=== PATIENT | male | born 1935 | race Caucasian/White ===

== ENCOUNTER 2016-07-22 16:25 | Inpatient (IN) | payer MEDICARE ==
[2016-07-22] MEDS ORDERED: DILTIAZEM HCL 5 MG/ML VIAL IV ONE ×2 (16:29→16:34)
[2016-07-22] MEDS ORDERED: NORMAL SALINE 1,000 ML IV ONE (16:31)
[2016-07-22 16:55] LABS: Hemoglobin 16.6 gm/dL (13.5-18.0); Mean Cell Volume 92.1 fl (78-100); Mean Corpuscular Hgb Conc 32.5 g/dl (32-36); Mean Platelet Volume 11.8 fl (6.0-9.5); Neutrophil # 18.6 K/mm3 (1.3-6.0); Neutrophil % 92.9 % (42-75.0); Platelet Count 360 K/mm3 (150-450); Red Blood Count 5.54 M/mm3 (4.7-6.0); Red Cell Distribution Width 13.8 % (11.5-14.0)
[2016-07-22 17:13] LABS: Albumin * 3.3 gm/dl (3.4-5.0); Anion Gap 19.9 mmol/L (6.8-13.8); BUN/Creatinine Ratio 25.3 (9.0-21.6); Bilirubin, Total 1.2 mg/dL (0.0-1.1); Ca. Corrected For Albumin 9.4 mg/dL (8.4-10.2); Calcium * 9.2 mg/dL (7.9-10.9); Carbon Dioxide 23.7 mmol/L (24-32.6); Potassium 4.6 mmol/L (3.4-4.6); Total Protein 8.3 gm/dL (6.2-8.2)
[2016-07-22 17:18] LABS: Troponin I 0.049 ng/ml (0.00-0.10)
[2016-07-22 17:47] LABS: Urine Bilirubin Negative (NEGATIVE); Urine Blood 250 /ul (NEGATIVE); Urine Ketone Negative (NEGATIVE); Urine Nitrite Negative (NEGATIVE); Urine Protein 15 mg/dL (NEGATIVE); Urine Specific Gravity >=1.030 SP.GR. (1.005-1.030); Urine Urobilinogen Normal (NORMAL); Urine pH 5.5 pH (5.0-7.0)
[2016-07-22 17:56] LABS: Urine Appearance Clear; Urine Bacteria TRACE; Urine Color Yellow; Urine WBC None Seen /hpf (0-5)
[2016-07-22] MEDS: NORMAL SALINE 1,000 ML IV SCH ×2 (18:15→19:27)
--- NOTE | 2016-07-22 18:58 | ERNOTE ---
Medical Problem HPI - Narrative Date of Service: 07/22/16 - General Chief Complaint: General Assessment Time Seen by Provider: 07/22/16 16:26 Source: family, EMS Exam Limitations: dementia - Immun/Allergies/Home Medications Immunizations: IMMUNIZATION HX Immunizations Up to Date Yes History of Influenza Vaccine No Allergies/Adverse Reactions: Allergies No Known Allergies Allergy (Unverified 07/22/16 16:53) Home Medications: HOME MEDICATIONS Acetaminophen [Tylenol] 650 mg PO Q6H PRN 07/22/16 [Last Taken Unknown] Aspirin [Aspirin EC] 81 mg PO DAILY 07/22/16 [Last Taken Unknown] Benazepril HCl 10 mg PO DAILY 07/22/16 [Last Taken Unknown] Cyanocobalamin [Vitamin B-12] 1,000 mcg PO DAILY 07/22/16 [Last Taken Unknown] Magnesium Hydroxide [Milk Of Magnesia] 30 ml PO DAILY PRN 07/22/16 [Last Taken Unknown] Metoprolol Succinate [Toprol Xl] 1.5 tab PO BID 07/22/16 [Last Taken Unknown] Multivit-Min/FA/Lycopene/Lut [Sentry Senior Multivitamin Tab] 1 each PO DAILY [Last Taken Unknown] OLANZapine [Zyprexa] 5 mg PO BID 07/22/16 [Last Taken Unknown] Fords-3 Fatty Acids [Fish Oil] 1,000 mg PO DAILY 07/22/16 [Last Taken Unknown] Pravastatin Sodium [Pravachol] 80 mg PO HS 07/22/16 [Last Taken Unknown] QUEtiapine FUMARATE [Seroquel] 25 mg PO HS 07/22/16 [Last Taken Unknown] Risperidone [Risperdal] 1 mg PO BID 07/22/16 [Last Taken Unknown] Risperidone [Risperdal] 2 mg PO HS 07/22/16 [Last Taken Unknown] - History of Present History Narrative: Patient brought in by EMS for mental status changes. Family report for the last 3 hours he has been jumpy and not acting himself. No Hx is available from him. EMS noted high HR and also gave him narcan. Temp here 99.4F. Family relates last week or so not himself but really not acting himself last 3 hours. no other Hx avaialble. Timing: other - unclear Modifying Factors - (Improves): Present: other - unknown Modifying Factors - (Worsens): Present: other - unknown Review of Systems - Narrative Narrative: unable to obtain ROS d/t dementia and medical condition - Review of Systems All Other Systems: All systems neg except as marked - Patient's Past Medical History Patient History - Medical: Alzheimer's Disease, Dementia Patient History - Cancer: No Hx of Cancer Patient History - Surgical Procedures: Appendectomy, Cholecystectomy, Coronary Bypass Surgery, Other - Social History Living Situations: care home Alcohol Use: none Drug Use: none Physical Exam - Physical Exam General Appearance: Present: other - breathing on his own, jerking at times, no seizure activity. Does not answer questions, Clinically dehydrated. Eye Exam: Normal inspection: bilateral, PERRL: bilateral - 2mm bilaterally Ears, Nose, Throat: Present: dry mucous membranes Neck: Present: other - trachea midline Respiratory: Present: other - tubular BS left base Cardiovascular/Chest: Present: tachycardia, irregularly irregular Peripheral Pulses: N=norm/S=strong/W=weak/B=bound/A=absent: Radial (R): Normal, Radial (L): Normal, Femoral (R): Normal, Femoral (L): Normal Gastrointestinal/Abdominal: Present: nontender, nondistended, soft, no organomegaly Back Exam: Present: other - does not seem to react to CVA percussion bilaterally Extremity Exam: Present: other - scattered abrasions, no cellulitis Neurological Exam: Present: other - does not respond to commands. No clear focal unilateral motor deficits. Skin Exam: Present: other - no clear cellulitis ED Progress - Results and Orders Patient's Lab Results:: I have reviewed the patient's lab results. - Vital Signs Patient's Vital Signs:: I have reviewed the patient's vital signs. Vital Signs: Vital Signs 07/22/16 07/22/16 07/22/16 16:28 16:37 16:46 Temperature 37.0 C Pulse Rate 134 H 134 H 112 H Respiratory 18 25 H Rate Blood Pressure 94/48 94/48 138/103 O2 Sat by Pulse 97 97 Oximetry 07/22/16 07/22/16 07/22/16 16:58 17:26 17:40 Temperature Pulse Rate 107 H 133 H 147 H Respiratory 22 H 19 26 H Rate Blood Pressure 99/47 139/59 106/72 O2 Sat by Pulse 95 95 97 Oximetry 07/22/16 07/22/16 17:56 18:11 Temperature Pulse Rate 147 H 144 H Respiratory 25 H 25 H Rate Blood Pressure 126/42 98/60 O2 Sat by Pulse 94 96 Oximetry - EKG EKG: atrial fibrillation EKG read: Interp. by me EKG Comments: Atrial Fib with RVR. ST depression, likely rate related. EKG # 2. A fib RVR, improved rate. Still with mild ST depressions, likely still rate relates. No STEMI noted. - X-Ray X-Ray #1 X-Ray: chest Interpretation: Reviewed by me X-ray Comments: NAPP - CT/Ultrasound CT/Ultrasound Narrative: Head ct report reviewed. - Progress/Reassessment Chief Complaint: General Assessment Progress:: Improved Progress Note-Subjective: 07/22/16 18:56 HR improved with cardizem. Given Sepsis bolus and ABx. HR increased. Kristen Duque who will admit to ICU, recommends cardizem drip which has been ordered. patient transferred to ICU for further evaluation and management. Departure - Departure Clinical Impression: Mental status change, Acute kidney injury, Atrial fibrillation with RVR Disposition: [facility] Condition: Poor
[2016-07-22] MEDS ORDERED: ACETAMINOPHEN 325 MG TABLET PO PRN (19:09)
[2016-07-22] MEDS: DILTIAZEM HCL 125 MG in DEXTROSE 5 % IN WATER 100 ML IV PRN ×2 (19:21)
[2016-07-22] MEDS ORDERED: NORMAL SALINE 1,000 ML IV PRN (20:22)
--- NOTE | 2016-07-22 21:12 | HP ---
<Elizabeth Larry - Last Filed: 07/23/16 03:05> Chief Complaint - Chief Complaint Date of Service: 07/22/16 Time of Service: 21:09 Chief Complaint: 'unresponsive,'. Source of HPI- Pt; unreliable due to obtundation, Pt's family members, ER provider report. History of Present Illness: Mr Kirkland is a 81-yr-old WM who is normally seen by the [facility] in [place]. His PMH involves: A-fib, Alzheimer's, Dementia, HTN, HLD, Macular degenaration. History is mostly obtained from pt's spouse and daughter as pt is in an obtunded state of consciousness. Apparently, pt had been admitted at the [facility] on 07/07/16 due to progressive worsening confusion. CT of the head obtained on that hospital visit/admission did not have any acute findings. His medications were adjusted too while he was at the [facility] to help control his impulsive behavior. [place] [facility] [place] [facility] [place]. Nursing staff at the facility were concerned about his mental status changes and so he was brought to the [facility] ER by the EMS. Family state that pt was noted to have apneic breathing that lasted approximately 20 seconds and that staff were unable to verbally arouse him. During evaluation at the ED, the CXR obtained was unremarkable. The head CT did not indicate any acute findings. No infection in UA either. However, his laboratory studies showed an elevated WBC with a left shift. He was also tachycardic and tachypneic, and his Lactic acid was elevated at 3.1, which prompted an inpatient admission due to clinical signs of Sepsis. - Patient's Past Medical History Patient History - Medical: Alzheimer's Disease, Dementia, Other - Macular degeneration, Glaucoma, Patient History - Cardiac/Respiratory: Atrial Fibrillation, Hypertension, Hyperlipidemia Patient History - Cancer: No Hx of Cancer Patient History - Surgical Procedures: Appendectomy, Cholecystectomy, Coronary Bypass Surgery, Other - Prostatectomy, Tonsilectomy. - Family History Father Family History - Medical: Family History - Cardiac/Respiratory: Myocardial Infarction Mother Family History - Medical: Family History - Cardiac/Respiratory: Coronary Heart Disease - Social History Living Situations: fdc Smoking Status: Former smoker Have you smoked in the past 12 months: No Do you dip or chew tobacco: No Alcohol Use: none Drug Use: none - Immunizations Immunizations Up to Date: Yes Hx Pneumococcal Vaccination: Yes History of Influenza Vaccine: Yes Review Of Systems (GEN) - Review of Systems Additional Comments: ROS unobtainable due to pt's AMS. Allergies/Adverse Reactions: Allergies Allergy/AdvReac Type Severity Reaction Status Date / Time No Known Allergies Allergy Unverified 07/22/16 16:53 Home Medications: HOME MEDICATIONS Acetaminophen [Tylenol] 650 mg PO Q6H PRN 07/22/16 [Last Taken 07/21/16 09:14] Aspirin [Aspirin EC] 81 mg PO DAILY 07/22/16 [Last Taken 07/21/16 08:00] Benazepril HCl 10 mg PO DAILY 07/22/16 [Last Taken 07/21/16 08:00] Cyanocobalamin [Vitamin B-12] 1,000 mcg PO DAILY 07/22/16 [Last Taken 07/21/16 08:00] Lorazepam [Ativan] 1 mg PO QID PRN 07/22/16 [Last Taken 07/15/16 23:18] Magnesium Hydroxide [Milk Of Magnesia] 30 ml PO DAILY PRN 07/22/16 [Last Taken 07/21/16 09:15] Metoprolol Succinate [Toprol Xl] 1.5 tab PO BID 07/22/16 [Last Taken 07/21/16 20 :00] Multivit-Min/FA/Lycopene/Lut [Sentry Senior Multivitamin Tab] 1 each PO DAILY [Last Taken 07/21/16 08:00] OLANZapine [Zyprexa] 5 mg PO BID 07/22/16 [Last Taken 07/21/16 08:00] Noti-3 Fatty Acids [Fish Oil] 1,000 mg PO DAILY 07/22/16 [Last Taken 07/21/16 08:00] Pravastatin Sodium [Pravachol] 80 mg PO HS 07/22/16 [Last Taken 07/21/16 20:00] QUEtiapine FUMARATE [Seroquel] 25 mg HS 07/22/16 [Last Taken 07/21/16 20:00] Risperidone [Risperdal] 1 mg PO BID 07/22/16 [Last Taken 07/21/16 14:00] Risperidone [Risperdal] 2 mg PO HS 07/22/16 [Last Taken 07/21/16 20:00] Exam - Exam Vital Signs: Vital Signs - Last Taken Temp 37.9 C H 07/22/16 18:33 Pulse 141 H 07/22/16 19:21 Resp 24 H 07/22/16 18:33 BP 128/47 07/22/16 19:21 Pulse Ox 100 07/22/16 18:33 Constitutional: Present: No distress, Obtunded, Elderly Eye Exam: bilateral eye: normal inspection - Legally Blind Neck: Present: supple, normal inspection, trachea midline Back Exam: Present: normal inspection, no CVA tenderness Breasts: Present: Exam deferred Respiratory: Present: lungs clear, no accessory muscle use, No wheezing Cardiovascular/Chest: Present: tachycardia, irregularly irregular Abdomen: Present: Normal bowel sounds, soft, nontender, nondistended /Rectal: Present: Exam deferred, Other Extremity: Present: no pedal edema Skin Exam: Present: no cyanosis, cool/dry, other - Scattered bruising all over. Neurologic: Present: motor weakness, other - Obtunded, GCS=7 Appearance: Present: impaired insight, impaired recent memory, impaired remote memory Eye contact: Present: other - No spontanous eye opening. Thoughts: Present: no apparent hallucination Diagnostic Studies: Laboratory Results WBC 20.0 K/mm3 (4.0-10.5) H 07/22/16 16:50 RBC 5.54 M/mm3 (4.7-6.0) 07/22/16 16:50 Hgb 16.6 gm/dL (13.5-18.0) 07/22/16 16:50 Hct 51.0 % (42.0-52.0) 07/22/16 16:50 MCV 92.1 fl (78-100) 07/22/16 16:50 MCH 30.0 pg (27-31) 07/22/16 16:50 MCHC 32.5 g/dl (32-36) 07/22/16 16:50 RDW 13.8 % (11.5-14.0) 07/22/16 16:50 Plt Count 360 K/mm3 (150-450) 07/22/16 16:50 MPV 11.8 fl (6.0-9.5) H 07/22/16 16:50 Immature Gran % (Auto) 0.50 % (0.001-0.429) H 07/22/16 16:50 Immature Gran # (Auto) 0.10 K/mm3 (0.000-0.0310) H 07/22/16 16:50 Neutrophils % 92.9 % (42-75.0) H 07/22/16 16:50 Lymphocytes % 3.1 % (20-51) L 07/22/16 16:50 Monocytes % 3.2 % (0.0-9) 07/22/16 16:50 Eosinophils % 0.0 % (0.0-3.0) 07/22/16 16:50 Basophils % 0.3 % (0.0-1.0) 07/22/16 16:50 Nucleated RBC % 0.0 k/mm3 (0-1) 07/22/16 16:50 Neutrophils # 18.6 K/mm3 (1.3-6.0) H 07/22/16 16:50 Lymphocytes # 0.6 k/mm3 (1.5-3.5) L 07/22/16 16:50 Monocytes # 0.6 k/mm3 (0.0-1.0) 07/22/16 16:50 Eosinophils # 0.0 k/mm3 (0.0-0.7) 07/22/16 16:50 Absolute Basophils 0.1 k/mm3 (0.0-0.1) 07/22/16 16:50 pCO2 24.9 mmHg (35.0-48.0) L 07/22/16 16:29 pO2 72.5 mmHg (83.0-108.0) L 07/22/16 16:29 HCO3 18.5 mmol/L (21.0-28.0) L 07/22/16 16:29 Total CO2 19.3 mmol/L (19.0-24.0) 07/22/16 16:29 Base Excess -2.7 mmol/L (-2.0-3.0) L 07/22/16 16:29 ABG pH 7.49 (7.35-7.45) H 07/22/16 16:29 ABG O2 Sat (Measured) 95.9 % (94.0-98.0) 07/22/16 16:29 Sodium 152 mmol/L (132-142) H 07/22/16 16:50 Plasma Sodium 153 mmol/L (130-142) H 07/22/16 16:50 Potassium 4.6 mmol/L (3.4-4.6) 07/22/16 16:50 Chloride 113 mmol/L (97-106) H 07/22/16 16:50 Carbon Dioxide 23.7 mmol/L (24-32.6) L 07/22/16 16:50 Anion Gap 19.9 mmol/L (6.8-13.8) H 07/22/16 16:50 BUN 96 mg/dL (6-23) H 07/22/16 16:50 Creatinine 3.79 mg/dL (0.4-1.4) H 07/22/16 16:50 Est GFR (Non-Af Amer) 16 mL/min (60-130) L 07/22/16 16:50 BUN/Creatinine Ratio 25.3 (9.0-21.6) H 07/22/16 16:50 Random Glucose 174 mg/dL (70-110) H 07/22/16 16:50 Lactic Acid, Venous 3.1 mmol/L (0.4-2.0) H* 07/22/16 16:50 Calcium 9.2 mg/dL (7.9-10.9) 07/22/16 16:50 Calcium Adj for Albumin 9.4 mg/dL (8.4-10.2) 07/22/16 16:50 Total Bilirubin 1.2 mg/dL (0.0-1.1) H 07/22/16 16:50 AST 289 U/L (0-48) H 07/22/16 16:50 ALT 108 U/L (19-67) H 07/22/16 16:50 Alkaline Phosphatase 134 U/L (50-170) 07/22/16 16:50 Troponin I 0.049 ng/ml (0.00-0.10) 07/22/16 16:50 Total Protein 8.3 gm/dL (6.2-8.2) H 07/22/16 16:50 Albumin 3.3 gm/dl (3.4-5.0) L 07/22/16 16:50 Urine Color Yellow 07/22/16 17:41 Urine Appearance Clear 07/22/16 17:41 Urine pH 5.5 pH (5.0-7.0) 07/22/16 17:41 Ur Specific [place] >=1.030 SP.GR. (1.005-1.030) 07/22/16 17:41 Urine Protein 15 mg/dL (NEGATIVE) H 07/22/16 17:41 Urine Glucose (UA) Negative mg/dL (NEGATIVE) 07/22/16 17:41 Urine Ketones Negative mg/dL (NEGATIVE) 07/22/16 17:41 Urine Blood 250 /ul (NEGATIVE) H 07/22/16 17:41 Urine Nitrate Negative (NEGATIVE) 07/22/16 17:41 Urine Bilirubin Negative mg/dl (NEGATIVE) 07/22/16 17:41 Prot Sulfosalicylic Acd Negative mg/dL (0) 07/22/16 17:41 Urine Urobilinogen Normal EU/dl (NORMAL) 07/22/16 17:41 Ur Leukocyte Esterase Negative /ul (NEGATIVE) 07/22/16 17:41 Urine RBC 5-10 /hpf (0-5) H 07/22/16 17:41 Urine WBC None seen /hpf (0-5) 07/22/16 17:41 Ur Epithelial Cells 5-10 /hpf (0-5) H 07/22/16 17:41 Urine Bacteria Trace (NONE) 07/22/16 17:41 Urine Culture Comments Culture to follow 07/22/16 17:41 Assessment/Plan - Assessment/Plan (1) Sepsis Assessment: Evidence by AMS, Lactic acid elevation, Leukocytosis, tachypnea & Tachycardia. Source of infection; unknown. Will receive treatment according to sepsis protocol; Aggressive IVF hydration & Antibiotics. Blood cultures pending. Problem: Acute (2) Atrial fibrillation with RVR Assessment: Noted to be in Afib with RVR heart rate in the 170s. Started on Diltiazem Drip and placed on closed monitoring unit. Problem: Acute (3) Acute kidney injury Assessment: BUN/CR of 96/3.79. His baseline while at the [facility] was 20/1.1. Is likley pre- renal. Will hydrate with IVF. BMP in am. Problem: Acute (4) Altered mental status Assessment: CT was negative for Ischemic or hemorrhagic stroke. Can be due to infection, or also medication related. He is on 3 psychotropic medications ( Seroquel, Zyprexa and Risperdal.) Will hold off all medications until he is more awake/ alert. Problem: Acute (5) HTN (hypertension) Problem: Chronic QualifierTitle: Hypertension type: essential hypertension Qualified Code( s): I10 - Essential (primary) hypertension (6) Macular degeneration Problem: Chronic (7) Dementia Problem: Chronic QualifierTitle: Dementia type: Alzheimer's disease <Jose Dixon - Last Filed: 07/23/16 11:10> Immunizations: IMMUNIZATION HX Immunizations Up to Date Yes History of Influenza Vaccine Yes Hx Pneumococcal Vaccination Yes Exam - Exam Vital Signs: Vital Signs - Last Taken Temp 36.7 C 07/23/16 07:19 Pulse 76 07/23/16 11:03 Resp 28 H 07/23/16 11:03 BP 108/45 07/23/16 11:03 Pulse Ox 97 07/23/16 11:03 Diagnostic Studies: Abnormal Lab Results 07/22/16 07/23/16 07/23/16 Range/Units 19:15 05:37 05:37 WBC 12.3 H D (4.0-10.5) K/mm3 RDW 14.1 H (11.5-14.0) % MPV 11.2 H (6.0-9.5) fl Band Neuts % (Manual) 24 H (0-2.0) % Lymphocytes % (Manual) 1 L (20-51) % Immature Granulocytes 2 H (0-1) Neutrophils # (Manual) 8.6 H (1.3-6.0) K/mm3 Lymphocytes # (Manual) 0.1 L (1.5-3.5) k/mm3 Sodium 154 H (132-142) mmol/L Plasma Sodium 155 H (130-142) mmol/L Chloride 119 H (97-106) mmol/L Carbon Dioxide 20.4 L (24-32.6) mmol/L Anion Gap 18.9 H (6.8-13.8) mmol/L BUN 87 H (6-23) mg/dL Creatinine 2.92 H D (0.4-1.4) mg/dL Est GFR (Non-Af Amer) 22 L D (60-130) mL/min BUN/Creatinine Ratio 29.8 H (9.0-21.6) Random Glucose 172 H (70-110) mg/dL Lactic Acid, Venous 2.1 H (0.4-2.0) mmol/L AST 202 H (0-48) U/L ALT 80 H (19-67) U/L Albumin 2.5 L (3.4-5.0) gm/dl TSH 0.242 L (0.358-3.74) uIU/mL Laboratory Results WBC 12.3 K/mm3 (4.0-10.5) H D 07/23/16 05:37 RBC 4.77 M/mm3 (4.7-6.0) 07/23/16 05:37 Hgb 14.6 gm/dL (13.5-18.0) 07/23/16 05:37 Hct 43.6 % (42.0-52.0) 07/23/16 05:37 MCV 91.4 fl (78-100) 07/23/16 05:37 MCH 30.6 pg (27-31) 07/23/16 05:37 MCHC 33.5 g/dl (32-36) 07/23/16 05:37 RDW 14.1 % (11.5-14.0) H 07/23/16 05:37 Plt Count 274 K/mm3 (150-450) 07/23/16 05:37 MPV 11.2 fl (6.0-9.5) H 07/23/16 05:37 Immature Gran % (Auto) 0.50 % (0.001-0.429) H 07/22/16 16:50 Immature Gran # (Auto) 0.10 K/mm3 (0.000-0.0310) H 07/22/16 16:50 Neutrophils % 92.9 % (42-75.0) H 07/22/16 16:50 Neutrophils % (Manual) 70 % (42-75) 07/23/16 05:37 Band Neuts % (Manual) 24 % (0-2.0) H 07/23/16 05:37 Lymphocytes % 3.1 % (20-51) L 07/22/16 16:50 Lymphocytes % (Manual) 1 % (20-51) L 07/23/16 05:37 Monocytes % 3.2 % (0.0-9) 07/22/16 16:50 Monocytes % (Manual) 2 % (0-9) 07/23/16 05:37 Eosinophils % 0.0 % (0.0-3.0) 07/22/16 16:50 Basophils % 0.3 % (0.0-1.0) 07/22/16 16:50 Nucleated RBC % 0.0 k/mm3 (0-1) 07/22/16 16:50 Immature Granulocytes 2 (0-1) H 07/23/16 05:37 Neutrophils # 18.6 K/mm3 (1.3-6.0) H 07/22/16 16:50 Neutrophils # (Manual) 8.6 K/mm3 (1.3-6.0) H 07/23/16 05:37 Lymphocytes # 0.6 k/mm3 (1.5-3.5) L 07/22/16 16:50 Lymphocytes # (Manual) 0.1 k/mm3 (1.5-3.5) L 07/23/16 05:37 Monocytes # 0.6 k/mm3 (0.0-1.0) 07/22/16 16:50 Monocytes # (Manual) 0.2 k/mm3 (0.0-1.0) 07/23/16 05:37 Eosinophils # 0.0 k/mm3 (0.0-0.7) 07/22/16 16:50 Absolute Basophils 0.1 k/mm3 (0.0-0.1) 07/22/16 16:50 Atypic/Reactive Lymphs 1 % (0-2) 07/23/16 05:37 Toxic Granulation 2+ 07/23/16 05:37 Toxic Vacuolation 1+ 07/23/16 05:37 Dohle Bodies 1+ 07/23/16 05:37 Platelet Estimate Normal (NORMAL) 07/23/16 05:37 pCO2 24.9 mmHg (35.0-48.0) L 07/22/16 16:29 pO2 72.5 mmHg (83.0-108.0) L 07/22/16 16:29 HCO3 18.5 mmol/L (21.0-28.0) L 07/22/16 16:29 Total CO2 19.3 mmol/L (19.0-24.0) 07/22/16 16:29 Base Excess -2.7 mmol/L (-2.0-3.0) L 07/22/16 16:29 ABG pH 7.49 (7.35-7.45) H 07/22/16 16:29 ABG O2 Sat (Measured) 95.9 % (94.0-98.0) 07/22/16 16:29 Sodium 154 mmol/L (132-142) H 07/23/16 05:37 Plasma Sodium 155 mmol/L (130-142) H 07/23/16 05:37 Potassium 4.3 mmol/L (3.4-4.6) 07/23/16 05:37 Chloride 119 mmol/L (97-106) H 07/23/16 05:37 Carbon Dioxide 20.4 mmol/L (24-32.6) L 07/23/16 05:37 Anion Gap 18.9 mmol/L (6.8-13.8) H 07/23/16 05:37 BUN 87 mg/dL (6-23) H 07/23/16 05:37 Creatinine 2.92 mg/dL (0.4-1.4) H D 07/23/16 05:37 Est GFR (Non-Af Amer) 22 mL/min (60-130) L D 07/23/16 05:37 BUN/Creatinine Ratio 29.8 (9.0-21.6) H 07/23/16 05:37 Random Glucose 172 mg/dL (70-110) H 07/23/16 05:37 Lactic Acid, Venous 2.1 mmol/L (0.4-2.0) H 07/22/16 19:15 Calcium 8.1 mg/dL (7.9-10.9) 07/23/16 05:37 Calcium Adj for Albumin 9.0 mg/dL (8.4-10.2) 07/23/16 05:37 Total Bilirubin 0.8 mg/dL (0.0-1.1) 07/23/16 05:37 AST 202 U/L (0-48) H 07/23/16 05:37 ALT 80 U/L (19-67) H 07/23/16 05:37 Alkaline Phosphatase 104 U/L (50-170) 07/23/16 05:37 Troponin I 0.049 ng/ml (0.00-0.10) 07/22/16 16:50 Total Protein 6.6 gm/dL (6.2-8.2) 07/23/16 05:37 Albumin 2.5 gm/dl (3.4-5.0) L 07/23/16 05:37 TSH 0.242 uIU/mL (0.358-3.74) L 07/23/16 05:37 Free T4 1.26 ng/dL (0.76-1.46) 07/23/16 05:37 Urine Color Yellow 07/22/16 17:41 Urine Appearance Clear 07/22/16 17:41 Urine pH 5.5 pH (5.0-7.0) 07/22/16 17:41 Ur Specific [place] >=1.030 SP.GR. (1.005-1.030) 07/22/16 17:41 Urine Protein 15 mg/dL (NEGATIVE) H 07/22/16 17:41 Urine Glucose (UA) Negative mg/dL (NEGATIVE) 07/22/16 17:41 Urine Ketones Negative mg/dL (NEGATIVE) 07/22/16 17:41 Urine Blood 250 /ul (NEGATIVE) H 07/22/16 17:41 Urine Nitrate Negative (NEGATIVE) 07/22/16 17:41 Urine Bilirubin Negative mg/dl (NEGATIVE) 07/22/16 17:41 Prot Sulfosalicylic Acd Negative mg/dL (0) 07/22/16 17:41 Urine Urobilinogen Normal EU/dl (NORMAL) 07/22/16 17:41 Ur Leukocyte Esterase Negative /ul (NEGATIVE) 07/22/16 17:41 Urine RBC 5-10 /hpf (0-5) H 07/22/16 17:41 Urine WBC None seen /hpf (0-5) 07/22/16 17:41 Ur Epithelial Cells 5-10 /hpf (0-5) H 07/22/16 17:41 Urine Bacteria Trace (NONE) 07/22/16 17:41 Urine Culture Comments Culture to follow 07/22/16 17:41 Influenza Type A Ag Negative (NEGATIVE) 07/22/16 21:32 Influenza Type B Ag Negative (NEGATIVE) 07/22/16 21:32 Assessment/Plan - Narrative Narrative: According to his family, he has been more confused and disoriented for about a week, worse for several hours on the day of admission. He was taking at the same time Risperdal, Seroquel and Zyprexa. He has a history of Alzheimer's with behaviours, recently worsening. This time, he also has a cough, and a fib with RVR, now controlled with Diltiazem. He has a history of chronic atrial fibrillation. He is probably suffering with bronchits, cultures are pending. I directly supervised all of Elizabeth Larry's care for this patient.
[2016-07-22] MEDS: 0.5 NORMAL SALINE 1,000 ML IV PRN (21:41)
[2016-07-22] MEDS: METOPROLOL TARTRATE 25 MG TABLET PO SCH (21:48)
[2016-07-22] MEDS: ENOXAPARIN SODIUM 30 MG/0.3 ML SYRG SC SCH (21:49)
[2016-07-23] MEDS: DILTIAZEM HCL 125 MG in DEXTROSE 5 % IN WATER 100 ML IV PRN ×4 (03:17→11:59)
[2016-07-23] MEDS: 0.5 NORMAL SALINE 1,000 ML IV PRN (05:27)
[2016-07-23 05:45] LABS: Hematocrit 43.6 % (42.0-52.0); Hemoglobin 14.6 gm/dL (13.5-18.0); Mean Cell Volume 91.4 fl (78-100); Mean Corpuscular Hemoglobin 30.6 pg (27-31); Mean Corpuscular Hgb Conc 33.5 g/dl (32-36); Mean Platelet Volume 11.2 fl (6.0-9.5); Platelet Count 274 K/mm3 (150-450); Red Blood Count 4.77 M/mm3 (4.7-6.0); Red Cell Distribution Width 14.1 % (11.5-14.0); White Blood Count 12.3 K/mm3 (4.0-10.5)
[2016-07-23 05:58] LABS: Total Cells Counted 100
[2016-07-23 06:10] LABS: BUN/Creatinine Ratio 29.8 (9.0-21.6); Carbon Dioxide 20.4 mmol/L (24-32.6); Potassium 4.3 mmol/L (3.4-4.6)
[2016-07-23 06:11] LABS: Albumin * 2.5 gm/dl (3.4-5.0); Anion Gap 18.9 mmol/L (6.8-13.8); Bilirubin, Total 0.8 mg/dL (0.0-1.1); Calcium * 8.1 mg/dL (7.9-10.9); T4 Free * 1.26 ng/dL (0.76-1.46); TSH * 0.242 uIU/mL (0.358-3.74); Total Protein 6.6 gm/dL (6.2-8.2)
[2016-07-23 06:19] LABS: Atypical (Reactive) Lymph 1 % (0-2); Band 24 % (0-2.0); Immature Granulocyte 2 (0-1); Lymphocyte 1 % (20-51); Monocyte 2 % (0-9); Neutrophil 70 % (42-75); Neutrophil # 8.6 K/mm3 (1.3-6.0)
[2016-07-23 06:20] LABS: Dohle Bodies 1+; Platelet Estimate Normal (NORMAL); Toxic Granulation 2+
[2016-07-23] MEDS: AMIODARONE HCL 200 MG TABLET PO SCH ×2 (08:12→20:55)
[2016-07-23] MEDS: METOPROLOL TARTRATE 25 MG TABLET PO SCH ×2 (08:12→20:55)
[2016-07-23] MEDS: POTASSIUM CHLORIDE 10 MEQ in DEXTROSE 5 % IN WATER 1,000 ML IV SCH ×4 (08:13→16:48)
[2016-07-23] MEDS: MULTIVIT WITH IRON-MINERALS 1 TAB TABLET PO SCH (08:26)
[2016-07-23] MEDS: CYANOCOBALAMIN 1,000 MCG TABLET PO SCH (08:26)
[2016-07-23] MEDS ORDERED: ASPIRIN 81 MG TABLET.DR PO SCH (09:00)
--- NOTE | 2016-07-23 11:21 | PN ---
Subjective - Date and Time Seen Date: 07/23/16 Time: 06:00 Subjective Narrative: Mostly slept through the night. No difficult behaviors. Heart rate improved with diltiazem drip. Cultures pending. On antibiotics. Still in chronic a fib. 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 Objective - Review of Systems Generalized/Overall Review: Reports: No Symptoms Reported - poor historian due to mental state. - Vitals Vitals: Last Vital Signs Selected Entries 07/23/16 07:19 Temperature 36.7 C Temperature Temporal Artery Source Scan Pulse Rate 98 Respiratory 22 H Rate Blood Pressure 132/75 O2 Sat by Pulse 98 Oximetry Oxygen Delivery Room Air Method - Abnormal Lab Findings Abnormal Lab Findings: Abnormal Lab Results 07/22/16 07/23/16 07/23/16 Range/Units 19:15 05:37 05:37 WBC 12.3 H D (4.0-10.5) K/mm3 RDW 14.1 H (11.5-14.0) % MPV 11.2 H (6.0-9.5) fl Band Neuts % (Manual) 24 H (0-2.0) % Lymphocytes % (Manual) 1 L (20-51) % Immature Granulocytes 2 H (0-1) Neutrophils # (Manual) 8.6 H (1.3-6.0) K/mm3 Lymphocytes # (Manual) 0.1 L (1.5-3.5) k/mm3 Sodium 154 H (132-142) mmol/L Plasma Sodium 155 H (130-142) mmol/L Chloride 119 H (97-106) mmol/L Carbon Dioxide 20.4 L (24-32.6) mmol/L Anion Gap 18.9 H (6.8-13.8) mmol/L BUN 87 H (6-23) mg/dL Creatinine 2.92 H D (0.4-1.4) mg/dL Est GFR (Non-Af Amer) 22 L D (60-130) mL/min BUN/Creatinine Ratio 29.8 H (9.0-21.6) Random Glucose 172 H (70-110) mg/dL Lactic Acid, Venous 2.1 H (0.4-2.0) mmol/L AST 202 H (0-48) U/L ALT 80 H (19-67) U/L Albumin 2.5 L (3.4-5.0) gm/dl TSH 0.242 L (0.358-3.74) uIU/mL - Exam Constitutional: Present: Alert, Cooperative, Well developed, Well nourished, Mild distress ENT Exam: Present: normal ENT inspection Neck: Present: normal inspection Respiratory: Present: lungs clear, no respiratory distress Cardiovascular/Chest: Present: no murmur, irregularly irregular Abdomen: Present: Normal bowel sounds, soft, nontender, nondistended, no rebound tenderness, no hepatospenomegaly, no masses Extremity: Present: normal range of motion, non-tender, normal inspection, no pedal edema Skin Exam: Present: normal color, warm/dry, no cyanosis Neurologic: Present: alert. Absent: oriented x 3 Appearance: Present: appropriate appearance, neat Eye contact: Present: cooperative Cauti Physician Documentation - Urinary Catheter Management Urethral (Moralez) Date of Insertion: 07/22/16 Time of Insertion: 21:20 Assessment/Plan Plan Narrative: Avoid major tranquilizers if able. Switch diltizem IV to oral beta blcoker. IV antibiotics. Follow labs. Await cultures. Add amiodarone. - Problems/Diagnosis (1) Antipsychotic-induced akathisia Problem: Acute (2) Acute kidney injury Problem: Acute (3) Altered mental status Problem: Acute Qualifiers: Altered mental status type: disorientation Qualified Code(s): R41.0 - Disorientation, unspecified (4) Atrial fibrillation with RVR Problem: Acute (5) Sepsis Problem: Acute Qualifiers: Sepsis type: sepsis due to unspecified organism Qualified Code(s): A41.9 - Sepsis, unspecified organism (6) Dementia Problem: Chronic Qualifiers: Dementia type: Alzheimer's disease Alzheimer's disease onset: late-onset Dementia behavioral disturbance: with behavioral disturbance Qualified Code(s) : G30.1 - Alzheimer's disease with late onset; F02.81 - Dementia in other diseases classified elsewhere with behavioral disturbance (7) HTN (hypertension) Problem: Chronic Qualifiers: Hypertension type: essential hypertension Qualified Code(s): I10 - Essential (primary) hypertension (8) Macular degeneration Problem: Chronic
[2016-07-23] MEDS: ENOXAPARIN SODIUM 30 MG/0.3 ML SYRG SC SCH (21:01)
[2016-07-24] MEDS: POTASSIUM CHLORIDE 10 MEQ in DEXTROSE 5 % IN WATER 1,000 ML IV SCH ×2 (01:16)
[2016-07-24 05:40] LABS: Hematocrit 41.5 % (42.0-52.0); Hemoglobin 13.5 gm/dL (13.5-18.0); Mean Corpuscular Hemoglobin 29.9 pg (27-31); Mean Corpuscular Hgb Conc 32.5 g/dl (32-36); Mean Platelet Volume 11.5 fl (6.0-9.5); Platelet Count 224 K/mm3 (150-450); Red Blood Count 4.51 M/mm3 (4.7-6.0); Red Cell Distribution Width 13.8 % (11.5-14.0); White Blood Count 11.6 K/mm3 (4.0-10.5)
[2016-07-24 05:49] LABS: Anion Gap 12.5 mmol/L (6.8-13.8); BUN/Creatinine Ratio 28.4 (9.0-21.6); Calcium * 8.1 mg/dL (7.9-10.9); Carbon Dioxide 24.4 mmol/L (24-32.6); Estimated Creat Clear 24.9; Potassium 3.9 mmol/L (3.4-4.6)
[2016-07-24 05:55] LABS: Total Cells Counted 100
[2016-07-24 06:32] LABS: Atypical (Reactive) Lymph 1 % (0-2); Band 29 % (0-2.0); Eosinophil 6 % (0-3); Lymphocyte 4 % (20-51); Monocyte 1 % (0-9); Neutrophil 59 % (42-75); Neutrophil # 6.8 K/mm3 (1.3-6.0)
[2016-07-24 06:33] LABS: Dohle Bodies 2+; Platelet Estimate Normal (NORMAL)
[2016-07-24] MEDS ORDERED: POTASSIUM CHLORIDE 20 MEQ in DEXTROSE 5 % IN WATER 1,000 ML IV SCH ×2 (07:30)
[2016-07-24] MEDS: METOPROLOL TARTRATE 25 MG TABLET PO SCH ×2 (09:18→20:33)
[2016-07-24] MEDS: AMIODARONE HCL 200 MG TABLET PO SCH ×2 (09:18→20:32)
[2016-07-24] MEDS: MULTIVIT WITH IRON-MINERALS 1 TAB TABLET PO SCH (09:24)
[2016-07-24] MEDS: CYANOCOBALAMIN 1,000 MCG TABLET PO SCH (09:24)
[2016-07-24] MEDS ORDERED: DILTIAZEM HCL 125 MG in DEXTROSE 5 % IN WATER 100 ML IV PRN ×2 (11:52)
[2016-07-24] MEDS ORDERED: ACETAMINOPHEN 325 MG TABLET PO PRN (11:52)
[2016-07-24] MEDS: POTASSIUM CHLORIDE 20 MEQ in DEXTROSE 5 % IN WATER 1,000 ML IV SCH ×2 (16:26)
--- NOTE | 2016-07-24 16:41 | PN ---
Subjective - Date and Time Seen Date: 07/24/16 Time: 06:45 Subjective Narrative: Mostly slept through the night. No difficult behaviors. Heart rate improved with diltiazem drip. Cultures pending. Infection is bronchitis. On antibiotics. Still in chronic a fib. Rate controlled. 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 Objective - Review of Systems Generalized/Overall Review: Reports: Weakness - nurse reports..........patient unable, Malaise Respiratory: Reports: Cough Abdominal: Denies: Nausea, Vomiting, Diarrhea Neurological: Reports: Pre-existing Deficit Skin: Denies: No Symptoms Reported Misc: All systems neg except as marked - Vitals Vitals: Last Vital Signs Selected Entries 07/24/16 07/24/16 07/24/16 00:00 02:00 04:00 Temperature 37.3 C 37.2 C Temperature Temporal Artery Source Scan Pulse Rate 97 104 H 104 H Pulse Rhythm Irregular Respiratory 16 22 H 22 H Rate Respiratory Normal Depth Respiratory Normal Effort Respiratory Normal Pattern Blood Pressure 104/58 89/58 114/69 Blood Pressure Supine Supine Position O2 Sat by Pulse 97 97 Oximetry Oxygen Delivery Room Air Room Air Method - Exam Constitutional: Present: Well developed, Well nourished, Mild distress, Lethargic, Looks Older than stated age ENT Exam: Present: normal ENT inspection Neck: Present: normal inspection Respiratory: Present: rhonchi Cardiovascular/Chest: Present: regular rate, rhythm, no murmur Abdomen: Present: Normal bowel sounds, soft, nondistended, no hepatospenomegaly , no masses Extremity: Present: normal inspection, no pedal edema Skin Exam: Present: normal color, warm/dry, no cyanosis Neurologic: Absent: alert, oriented x 3 Appearance: Present: appropriate appearance Eye contact: Absent: cooperative, good eye contact, normal speech Thoughts: Absent: normal thought pattern Cauti Physician Documentation - Urinary Catheter Management Urethral (Moralez) Date of Insertion: 07/22/16 Time of Insertion: 21:20 Assessment/Plan Plan Narrative: We will continue off psychotropics for now. Continue amiodarone and monitor. Add doxycycline for atypical coverage. Transfer to med surg. Follow labs. - Problems/Diagnosis (1) Antipsychotic-induced akathisia Problem: Acute (2) Acute kidney injury Problem: Acute (3) Altered mental status Problem: Acute Qualifiers: Altered mental status type: disorientation Qualified Code(s): R41.0 - Disorientation, unspecified (4) Atrial fibrillation with RVR Problem: Acute (5) Sepsis Problem: Acute Qualifiers: Sepsis type: sepsis due to unspecified organism Qualified Code(s): A41.9 - Sepsis, unspecified organism (6) Dementia Problem: Chronic Qualifiers: Dementia type: Alzheimer's disease Alzheimer's disease onset: late-onset Dementia behavioral disturbance: with behavioral disturbance Qualified Code(s) : G30.1 - Alzheimer's disease with late onset; F02.81 - Dementia in other diseases classified elsewhere with behavioral disturbance (7) HTN (hypertension) Problem: Chronic Qualifiers: Hypertension type: essential hypertension Qualified Code(s): I10 - Essential (primary) hypertension (8) Macular degeneration Problem: Chronic (9) Acute bronchitis Problem: Acute Qualifiers: Bronchitis organism: unspecified organism Qualified Code(s): J20.9 - Acute bronchitis, unspecified
[2016-07-24] MEDS: ENOXAPARIN SODIUM 30 MG/0.3 ML SYRG SC SCH (20:32)
[2016-07-24] MEDS: HALOPERIDOL LACTATE 5 MG/ML VIAL IM PRN (22:37)
[2016-07-25] MEDS: POTASSIUM CHLORIDE 20 MEQ in DEXTROSE 5 % IN WATER 1,000 ML IV SCH ×6 (02:44→19:33)
[2016-07-25 05:42] LABS: Hematocrit 39.5 % (42.0-52.0); Hemoglobin 13.1 gm/dL (13.5-18.0); Mean Cell Volume 90.6 fl (78-100); Mean Corpuscular Hgb Conc 33.2 g/dl (32-36); Mean Platelet Volume 11.4 fl (6.0-9.5); Platelet Count 225 K/mm3 (150-450); Red Blood Count 4.36 M/mm3 (4.7-6.0); Red Cell Distribution Width 13.4 % (11.5-14.0)
[2016-07-25 05:46] LABS: Total Cells Counted 100
[2016-07-25 05:56] LABS: Anion Gap 13.7 mmol/L (6.8-13.8); BUN/Creatinine Ratio 23.2 (9.0-21.6); Bilirubin, Total 0.9 mg/dL (0.0-1.1); Ca. Corrected For Albumin 9.2 mg/dL (8.4-10.2); Calcium * 7.9 mg/dL (7.9-10.9); Carbon Dioxide 23.5 mmol/L (24-32.6); Potassium 4.2 mmol/L (3.4-4.6); Total Protein 6.2 gm/dL (6.2-8.2)
[2016-07-25 06:00] LABS: Band 1 % (0-2.0); Eosinophil 3 % (0-3); Lymphocyte 4 % (20-51); Monocyte 2 % (0-9); Neutrophil 90 % (42-75); Neutrophil # 12.6 K/mm3 (1.3-6.0)
[2016-07-25 06:01] LABS: Dohle Bodies 1+; Platelet Estimate Normal (NORMAL); RBC Morphology Normal (NORMAL)
[2016-07-25] MEDS: MEMANTINE HCL 10 MG TABLET PO SCH (08:16)
[2016-07-25] MEDS: AMIODARONE HCL 200 MG TABLET PO SCH ×2 (08:16→20:06)
[2016-07-25] MEDS: ZIPRASIDONE HCL 20 MG CAPSULE PO SCH ×2 (08:16→20:07)
[2016-07-25] MEDS: DONEPEZIL HCL 10 MG TABLET PO SCH (08:16)
[2016-07-25] MEDS: METOPROLOL TARTRATE 25 MG TABLET PO SCH ×2 (08:17→20:05)
[2016-07-25] MEDS: CYANOCOBALAMIN 1,000 MCG TABLET PO SCH (08:22)
[2016-07-25] MEDS: MULTIVIT WITH IRON-MINERALS 1 TAB TABLET PO SCH (08:23)
[2016-07-25] MEDS: DOXYCYCLINE HYCLATE 100 MG TABLET PO SCH ×2 (10:31→21:15)
--- NOTE | 2016-07-25 10:57 | PN ---
Subjective - Date and Time Seen Date: 07/25/16 Time: 07:00 Subjective Narrative: Woke up during the night, with combative behaviors requiring a 5 mg dose of haldol IM. Cultures negative. Infection is bronchitis. On antibiotics. Still in chronic a fib. Rate controlled. 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 We will need to reinstitute some type of behavioral management plan at this point. Objective - Review of Systems Generalized/Overall Review: Reports: No Symptoms Reported - unable, due to dementia. see nurses notes. - Vitals Vitals: Last Vital Signs Selected Entries 07/25/16 06:52 Temperature 37.4 C Temperature Oral Source Pulse Rate 76 Respiratory 20 Rate Blood Pressure 116/67 Blood Pressure Supine Position O2 Sat by Pulse 97 Oximetry - Abnormal Lab Findings Abnormal Lab Findings: Abnormal Lab Results 07/25/16 07/25/16 Range/Units 04:58 04:58 WBC 14.0 H D (4.0-10.5) K/mm3 RBC 4.36 L (4.7-6.0) M/mm3 Hgb 13.1 L (13.5-18.0) gm/dL Hct 39.5 L (42.0-52.0) % MPV 11.4 H (6.0-9.5) fl Neutrophils % (Manual) 90 H (42-75) % Lymphocytes % (Manual) 4 L (20-51) % Neutrophils # (Manual) 12.6 H (1.3-6.0) K/mm3 Lymphocytes # (Manual) 0.6 L (1.5-3.5) k/mm3 Sodium 146 H (132-142) mmol/L Plasma Sodium 147 H (130-142) mmol/L Chloride 113 H (97-106) mmol/L Carbon Dioxide 23.5 L (24-32.6) mmol/L BUN 43 H (6-23) mg/dL Creatinine 1.85 H D (0.4-1.4) mg/dL Est GFR (Non-Af Amer) 37 L D (60-130) mL/min BUN/Creatinine Ratio 23.2 H (9.0-21.6) Random Glucose 151 H (70-110) mg/dL AST 113 H (0-48) U/L Albumin 2.0 L (3.4-5.0) gm/dl - Exam Constitutional: Present: Well developed, Lethargic ENT Exam: Present: normal ENT inspection Neck: Present: normal inspection Respiratory: Present: no respiratory distress, rhonchi Cardiovascular/Chest: Present: no murmur, irregularly irregular Abdomen: Present: Normal bowel sounds, soft, nondistended, no hepatospenomegaly , no masses Extremity: Present: normal inspection, no pedal edema Skin Exam: Present: normal color, warm/dry, no cyanosis Neurologic: Present: disoriented x 3 Appearance: Present: disheveled, impaired insight, impaired recent memory, impaired remote memory Eye contact: Present: normal speech. Absent: cooperative, good eye contact Thoughts: Present: incoherent Cauti Physician Documentation - Urinary Catheter Management Urethral (Moralez) Date of Insertion: 07/22/16 Time of Insertion: 21:20 Assessment/Plan Plan Narrative: Continue antibiotics, amiodarone. Follow labs. Add Geodon, namenda and aricept. - Problems/Diagnosis (1) Antipsychotic-induced akathisia Problem: Acute (2) Acute kidney injury Problem: Acute (3) Altered mental status Problem: Acute Qualifiers: Altered mental status type: disorientation Qualified Code(s): R41.0 - Disorientation, unspecified (4) Atrial fibrillation with RVR Problem: Acute (5) Sepsis Problem: Acute Qualifiers: Sepsis type: sepsis due to unspecified organism Qualified Code(s): A41.9 - Sepsis, unspecified organism (6) Dementia Problem: Chronic Qualifiers: Dementia type: Alzheimer's disease Alzheimer's disease onset: late-onset Dementia behavioral disturbance: with behavioral disturbance Qualified Code(s) : G30.1 - Alzheimer's disease with late onset; F02.81 - Dementia in other diseases classified elsewhere with behavioral disturbance (7) HTN (hypertension) Problem: Chronic Qualifiers: Hypertension type: essential hypertension Qualified Code(s): I10 - Essential (primary) hypertension (8) Macular degeneration Problem: Chronic (9) Acute bronchitis Problem: Acute Qualifiers: Bronchitis organism: unspecified organism Qualified Code(s): J20.9 - Acute bronchitis, unspecified
[2016-07-25] MEDS: ENOXAPARIN SODIUM 30 MG/0.3 ML SYRG SC SCH (20:06)
[2016-07-26] MEDS: HALOPERIDOL LACTATE 5 MG/ML VIAL IM PRN ×2 (04:11→20:41)
[2016-07-26 05:42] LABS: Hematocrit 41.4 % (42.0-52.0); Hemoglobin 13.7 gm/dL (13.5-18.0); Mean Corpuscular Hemoglobin 29.8 pg (27-31); Mean Corpuscular Hgb Conc 33.1 g/dl (32-36); Mean Platelet Volume 11.7 fl (6.0-9.5); Neutrophil # 11.4 K/mm3 (1.3-6.0); Neutrophil % 83.6 % (42-75.0); Platelet Count 225 K/mm3 (150-450); Red Cell Distribution Width 13.3 % (11.5-14.0); White Blood Count 13.6 K/mm3 (4.0-10.5)
[2016-07-26] MEDS: POTASSIUM CHLORIDE 20 MEQ in DEXTROSE 5 % IN WATER 1,000 ML IV SCH ×6 (05:44→23:21)
[2016-07-26 05:53] LABS: Anion Gap 12.6 mmol/L (6.8-13.8); BUN/Creatinine Ratio 21.6 (9.0-21.6); Carbon Dioxide 23.3 mmol/L (24-32.6); Estimated Creat Clear 38.4; Potassium 3.9 mmol/L (3.4-4.6)
[2016-07-26] MEDS: DOXYCYCLINE HYCLATE 100 MG TABLET PO SCH ×2 (09:07→22:35)
[2016-07-26] MEDS: AMIODARONE HCL 200 MG TABLET PO SCH ×2 (09:07→20:43)
[2016-07-26] MEDS: METOPROLOL TARTRATE 25 MG TABLET PO SCH ×2 (09:07→20:46)
[2016-07-26] MEDS: DONEPEZIL HCL 10 MG TABLET PO SCH (09:07)
[2016-07-26] MEDS: CYANOCOBALAMIN 1,000 MCG TABLET PO SCH (09:08)
[2016-07-26] MEDS: MULTIVIT WITH IRON-MINERALS 1 TAB TABLET PO SCH (09:08)
[2016-07-26] MEDS: ZIPRASIDONE HCL 40 MG CAPSULE PO SCH ×2 (09:08→20:44)
[2016-07-26] MEDS: MEMANTINE HCL 10 MG TABLET PO SCH (09:08)
--- NOTE | 2016-07-26 11:23 | PN ---
Subjective - Date and Time Seen Date: 07/26/16 Time: 07:00 Subjective Narrative: Woke up during the night again, with combative and confused behaviors requiring a 5 mg dose of haldol IM. Cultures negative. Infection is bronchitis. On antibiotics. Still in chronic a fib. Rate controlled. 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 We will increase his geodon dose today. We will continue IV antibiotics. Family stated to me yesterday he is legally blind. Objective - Review of Systems Generalized/Overall Review: Reports: No Symptoms Reported - mental status does not allow - Vitals Vitals: Last Vital Signs Selected Entries 07/26/16 06:40 Temperature 36.8 C Temperature Oral Source Pulse Rate 90 Respiratory 20 Rate Blood Pressure 131/87 Blood Pressure Supine Position O2 Sat by Pulse 93 Oximetry Oxygen Delivery Room Air Method - Abnormal Lab Findings Abnormal Lab Findings: Abnormal Lab Results 07/26/16 07/26/16 Range/Units 05:05 05:05 WBC 13.6 H (4.0-10.5) K/mm3 RBC 4.60 L (4.7-6.0) M/mm3 Hct 41.4 L (42.0-52.0) % MPV 11.7 H (6.0-9.5) fl Immature Gran % (Auto) 1.00 H (0.001-0.429) % Immature Gran # (Auto) 0.13 H (0.000-0.0310) K/mm3 Neutrophils % 83.6 H (42-75.0) % Lymphocytes % 6.3 L (20-51) % Eosinophils % 5.3 H (0.0-3.0) % Neutrophils # 11.4 H (1.3-6.0) K/mm3 Lymphocytes # 0.9 L (1.5-3.5) k/mm3 Chloride 109 H (97-106) mmol/L Carbon Dioxide 23.3 L (24-32.6) mmol/L BUN 33 H (6-23) mg/dL Creatinine 1.53 H (0.4-1.4) mg/dL Est GFR (Non-Af Amer) 47 L D (60-130) mL/min Random Glucose 129 H (70-110) mg/dL - Exam Constitutional: Present: No distress, Lethargic. Absent: Oriented x3, Cooperative ENT Exam: Present: normal ENT inspection Neck: Present: normal inspection Respiratory: Present: rhonchi, expiration (prolonged) Cardiovascular/Chest: Present: regular rate, rhythm, no murmur Abdomen: Present: Normal bowel sounds, soft, nontender, nondistended, no rebound tenderness, no hepatospenomegaly, no masses Extremity: Present: normal inspection, no pedal edema Skin Exam: Present: normal color, warm/dry, no cyanosis Neurologic: Present: disoriented x 3 Appearance: Present: impaired insight, impaired recent memory, impaired remote memory Eye contact: Absent: cooperative, good eye contact, normal speech Thoughts: Absent: normal thought pattern Cauti Physician Documentation - Urinary Catheter Management Urethral (Moralez) Date of Insertion: 07/22/16 Time of Insertion: 21:20 Assessment/Plan Plan Narrative: Continue IV antibiotics. Increase geodon dose. - Problems/Diagnosis (1) Antipsychotic-induced akathisia Problem: Acute (2) Acute kidney injury Problem: Acute (3) Altered mental status Problem: Acute Qualifiers: Altered mental status type: disorientation Qualified Code(s): R41.0 - Disorientation, unspecified (4) Atrial fibrillation with RVR Problem: Acute (5) Sepsis Problem: Acute Qualifiers: Sepsis type: sepsis due to unspecified organism Qualified Code(s): A41.9 - Sepsis, unspecified organism (6) Dementia Problem: Chronic Qualifiers: Dementia type: Alzheimer's disease Alzheimer's disease onset: late-onset Dementia behavioral disturbance: with behavioral disturbance Qualified Code(s) : G30.1 - Alzheimer's disease with late onset; F02.81 - Dementia in other diseases classified elsewhere with behavioral disturbance (7) HTN (hypertension) Problem: Chronic Qualifiers: Hypertension type: essential hypertension Qualified Code(s): I10 - Essential (primary) hypertension (8) Macular degeneration Problem: Chronic (9) Acute bronchitis Problem: Acute Qualifiers: Bronchitis organism: unspecified organism Qualified Code(s): J20.9 - Acute bronchitis, unspecified (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
[2016-07-26] MEDS: ENOXAPARIN SODIUM 30 MG/0.3 ML SYRG SC SCH (20:44)
[2016-07-27 06:30] LABS: Hematocrit 39.1 % (42.0-52.0); Hemoglobin 13.3 gm/dL (13.5-18.0); Mean Cell Volume 88.7 fl (78-100); Mean Corpuscular Hemoglobin 30.2 pg (27-31); Mean Platelet Volume 11.8 fl (6.0-9.5); Neutrophil # 10.7 K/mm3 (1.3-6.0); Neutrophil % 80.9 % (42-75.0); Platelet Count 238 K/mm3 (150-450); Red Blood Count 4.41 M/mm3 (4.7-6.0); White Blood Count 13.2 K/mm3 (4.0-10.5)
[2016-07-27 06:45] LABS: Albumin * 2.2 gm/dl (3.4-5.0); Anion Gap 13.4 mmol/L (6.8-13.8); BUN/Creatinine Ratio 17.2 (9.0-21.6); Calcium * 7.9 mg/dL (7.9-10.9); Carbon Dioxide 22.8 mmol/L (24-32.6); Potassium 4.2 mmol/L (3.4-4.6); Total Protein 6.3 gm/dL (6.2-8.2)
[2016-07-27] MEDS: POTASSIUM CHLORIDE 20 MEQ in DEXTROSE 5 % IN WATER 1,000 ML IV SCH ×4 (07:46→16:32)
[2016-07-27] MEDS: DOXYCYCLINE HYCLATE 100 MG TABLET PO SCH ×2 (09:38→23:12)
[2016-07-27] MEDS: MEMANTINE HCL 10 MG TABLET PO SCH (09:39)
[2016-07-27] MEDS: DONEPEZIL HCL 10 MG TABLET PO SCH (09:39)
[2016-07-27] MEDS: AMIODARONE HCL 200 MG TABLET PO SCH ×2 (09:39→21:04)
[2016-07-27] MEDS: ZIPRASIDONE HCL 40 MG CAPSULE PO SCH ×2 (09:39→21:03)
[2016-07-27] MEDS: CYANOCOBALAMIN 1,000 MCG TABLET PO SCH (09:39)
[2016-07-27] MEDS: METOPROLOL TARTRATE 25 MG TABLET PO SCH ×2 (09:39→21:03)
[2016-07-27] MEDS: MULTIVIT WITH IRON-MINERALS 1 TAB TABLET PO SCH (09:39)
--- NOTE | 2016-07-27 15:30 | PN ---
Subjective - Date and Time Seen Date: 07/27/16 Time: 07:00 Subjective Narrative: Woke up during the night again, with combative and confused behaviors requiring a 5 mg dose of haldol IM. Cultures negative. Infection is bronchitis. On antibiotics. Still in chronic a fib. Rate controlled. 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 We have increased his geodon dose and OVERALL behaviors seem modestly improved. We will continue IV antibiotics. Family stated to me two days ago he is legally blind. He is improving, very slowly, on IV antibiotics, but I have no cultures to guide a reasonable switch to oral medications. I am treating this as a bacterial bronchitis. His situation is complicated by his advanced Alzheimers, with dangerous associated behaviors, and we are just now beginning to get a handle on this part of his care. Not too long ago, he was hospitalized acutely solely for this problem. His wbc count is coming down, but I remain concerned by his slow improvement, the lack of guiding cultures, [place] the [place] [id number]. I think his life and health risk would be most safely handled by continuing IV antibiotics till Wednesday, maximizing benefit from treatment for his behavioral issues, and watching his wbc count daily. We also need to carefully watch his liver function for trends while he is here. Laboratory Tests 07/22/16 07/22/16 07/23/16 16:50 19:15 05:37 WBC 20.0 H 12.3 H D Random Glucose Lactic Acid, Venous 2.1 H AST ALT TSH 07/23/16 07/24/16 07/24/16 05:37 05:17 05:17 WBC 11.6 H Random Glucose 172 H 168 H Lactic Acid, Venous AST 202 H ALT 80 H TSH 0.242 L 07/25/16 07/25/16 07/26/16 04:58 04:58 05:05 WBC 14.0 H D 13.6 H Random Glucose 151 H Lactic Acid, Venous AST 113 H ALT TSH 07/26/16 07/27/16 07/27/16 05:05 06:20 06:20 WBC 13.2 H Random Glucose 129 H 151 H Lactic Acid, Venous AST 97 H ALT 94 H TSH Objective - Review of Systems Generalized/Overall Review: Reports: No Symptoms Reported - poor historian, but more conversant today - Vitals Vitals: Last Vital Signs Selected Entries 07/27/16 06:00 Temperature 37 C Temperature Oral Source Pulse Rate 88 Respiratory 18 Rate Blood Pressure 125/47 Blood Pressure Sitting Position O2 Sat by Pulse 94 Oximetry Oxygen Delivery Room Air Method - Abnormal Lab Findings Abnormal Lab Findings: Abnormal Lab Results 07/27/16 07/27/16 Range/Units 06:20 06:20 WBC 13.2 H (4.0-10.5) K/mm3 RBC 4.41 L (4.7-6.0) M/mm3 Hgb 13.3 L (13.5-18.0) gm/dL Hct 39.1 L (42.0-52.0) % MPV 11.8 H (6.0-9.5) fl Immature Gran % (Auto) 1.20 H (0.001-0.429) % Immature Gran # (Auto) 0.16 H (0.000-0.0310) K/mm3 Neutrophils % 80.9 H (42-75.0) % Lymphocytes % 8.3 L (20-51) % Eosinophils % 4.8 H (0.0-3.0) % Neutrophils # 10.7 H (1.3-6.0) K/mm3 Lymphocytes # 1.1 L (1.5-3.5) k/mm3 Chloride 109 H (97-106) mmol/L Carbon Dioxide 22.8 L (24-32.6) mmol/L Est GFR (Non-Af Amer) 54 L (60-130) mL/min Random Glucose 151 H (70-110) mg/dL AST 97 H (0-48) U/L ALT 94 H (19-67) U/L Albumin 2.2 L (3.4-5.0) gm/dl - Exam Constitutional: Present: Cooperative, Somnolent. Absent: Oriented x3 ENT Exam: Present: normal ENT inspection, hearing grossly normal Neck: Present: normal inspection Respiratory: Present: decreased breath sounds, rhonchi, expiration (prolonged) Cardiovascular/Chest: Present: no murmur, irregularly irregular Abdomen: Present: Normal bowel sounds, soft, nontender, nondistended, no rebound tenderness, no hepatospenomegaly, no masses Extremity: Present: normal inspection, no pedal edema Skin Exam: Present: normal color, warm/dry, no cyanosis Lymphatic: Present: no adenopathy Neurologic: Present: disoriented x 3. Absent: alert Appearance: Present: appropriate appearance, neat, impaired insight, impaired recent memory, impaired remote memory. Absent: appropriate insight Eye contact: Present: cooperative. Absent: good eye contact, normal speech Thoughts: Present: incoherent. Absent: normal thought pattern Cauti Physician Documentation - Urinary Catheter Management Urethral (Moralez) Date of Insertion: 07/22/16 Time of Insertion: 21:20 Assessment/Plan Plan Narrative: Follow labs, including CBC and liver function. Adjust geodon as needed, and minimize other psychoactive medications. Continue IV antibiotics till Wednesday. - Problems/Diagnosis (1) Antipsychotic-induced akathisia Problem: Resolved (2) Acute kidney injury Problem: Resolved (3) Altered mental status Problem: Acute Qualifiers: Altered mental status type: disorientation Qualified Code(s): R41.0 - Disorientation, unspecified (4) Atrial fibrillation with RVR Problem: Resolved (5) Sepsis Problem: Acute Qualifiers: Sepsis type: sepsis due to unspecified organism Qualified Code(s): A41.9 - Sepsis, unspecified organism (6) Dementia Problem: Chronic Qualifiers: Dementia type: Alzheimer's disease Alzheimer's disease onset: late-onset Dementia behavioral disturbance: with behavioral disturbance Qualified Code(s) : G30.1 - Alzheimer's disease with late onset; F02.81 - Dementia in other diseases classified elsewhere with behavioral disturbance (7) HTN (hypertension) Problem: Chronic Qualifiers: Hypertension type: essential hypertension Qualified Code(s): I10 - Essential (primary) hypertension (8) Macular degeneration Problem: Chronic (9) Acute bronchitis Problem: Acute Qualifiers: Bronchitis organism: unspecified organism Qualified Code(s): J20.9 - Acute bronchitis, unspecified (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
[2016-07-27] MEDS: ENOXAPARIN SODIUM 30 MG/0.3 ML SYRG SC SCH (21:04)
[2016-07-28] MEDS: POTASSIUM CHLORIDE 20 MEQ in DEXTROSE 5 % IN WATER 1,000 ML IV SCH ×6 (03:16→20:15)
[2016-07-28 05:40] LABS: Hematocrit 38.7 % (42.0-52.0); Hemoglobin 13.1 gm/dL (13.5-18.0); Mean Corpuscular Hemoglobin 30.1 pg (27-31); Mean Corpuscular Hgb Conc 33.9 g/dl (32-36); Mean Platelet Volume 11.7 fl (6.0-9.5); Neutrophil # 10.4 K/mm3 (1.3-6.0); Neutrophil % 78.3 % (42-75.0); Platelet Count 279 K/mm3 (150-450); Red Blood Count 4.35 M/mm3 (4.7-6.0); Red Cell Distribution Width 13.1 % (11.5-14.0); White Blood Count 13.2 K/mm3 (4.0-10.5)
[2016-07-28 06:12] LABS: Albumin * 2.2 gm/dl (3.4-5.0); Anion Gap 15.4 mmol/L (6.8-13.8); BUN/Creatinine Ratio 15.1 (9.0-21.6); Bilirubin Direct 0.2 mg/dL (0.0-0.3); Bilirubin, Total 0.9 mg/dL (0.0-1.1); Calcium * 8.1 mg/dL (7.9-10.9); Estimated Creat Clear 46.7; Potassium 4.4 mmol/L (3.4-4.6); Total Protein 6.2 gm/dL (6.2-8.2)
[2016-07-28 06:13] LABS: Bilirubin,Indirect 0.7 mg/dL (0.1-0.7); TSH * 2.481 uIU/mL (0.358-3.74)
[2016-07-28] MEDS: MEMANTINE HCL 10 MG TABLET PO SCH (09:18)
[2016-07-28] MEDS: ZIPRASIDONE HCL 40 MG CAPSULE PO SCH ×2 (09:18→20:16)
[2016-07-28] MEDS: DOXYCYCLINE HYCLATE 100 MG TABLET PO SCH ×2 (09:19→21:28)
[2016-07-28] MEDS: DONEPEZIL HCL 10 MG TABLET PO SCH (09:19)
[2016-07-28] MEDS: AMIODARONE HCL 200 MG TABLET PO SCH ×2 (09:19→20:16)
[2016-07-28] MEDS: METOPROLOL TARTRATE 25 MG TABLET PO SCH ×2 (09:19→20:16)
[2016-07-28] MEDS: MULTIVIT WITH IRON-MINERALS 1 TAB TABLET PO SCH (09:24)
[2016-07-28] MEDS: CYANOCOBALAMIN 1,000 MCG TABLET PO SCH (09:24)
--- NOTE | 2016-07-28 14:57 | PN ---
Subjective - Date and Time Seen Date: 07/28/16 Time: 06:20 Subjective Narrative: Did not require prn IM haldol last night. Cultures negative. Infection is bronchitis. Sepsis is due to bronchits. On antibiotics. Still in chronic a fib. Rate controlled. 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 We have increased his geodon dose and OVERALL behaviors seem modestly improved. We will continue IV antibiotics. Family stated to me 3 days ago he is legally blind. He is improving, very slowly, on IV antibiotics, but I have no cultures to guide a reasonable switch to oral medications. I am treating this as a bacterial bronchitis. His situation is complicated by his advanced Alzheimers, with dangerous associated behaviors, and we are now getting a handle on this part of his care. Not too long ago, he was hospitalized acutely solely for this problem. [place] [id number], but I remain concerned by his slow improvement, the lack of guiding cultures, and the fact that his wbc count is still [id number]. I think his life and health risk would be most safely handled by continuing IV antibiotics till Wednesday, maximizing benefit from treatment for his behavioral issues, and watching his wbc count daily. We also need to carefully watch his liver function for trends while he is here. Laboratory Tests Objective - Review of Systems Generalized/Overall Review: Reports: No Symptoms Reported - poor historian. talks, converses, but doesn't make sense. - Vitals Vitals: Last Vital Signs Selected Entries 07/28/16 03:00 Temperature 36.7 C Temperature Oral Source Pulse Rate 69 Respiratory 18 Rate Blood Pressure 136/70 Blood Pressure Supine Position O2 Sat by Pulse 93 Oximetry Oxygen Delivery Room Air Method - Abnormal Lab Findings Abnormal Lab Findings: Abnormal Lab Results 07/28/16 07/28/16 Range/Units 05:25 05:25 WBC 13.2 H (4.0-10.5) K/mm3 RBC 4.35 L (4.7-6.0) M/mm3 Hgb 13.1 L (13.5-18.0) gm/dL Hct 38.7 L (42.0-52.0) % MPV 11.7 H (6.0-9.5) fl Immature Gran % (Auto) 2.00 H (0.001-0.429) % Immature Gran # (Auto) 0.26 H (0.000-0.0310) K/mm3 Neutrophils % 78.3 H (42-75.0) % Lymphocytes % 9.0 L (20-51) % Eosinophils % 5.0 H (0.0-3.0) % Neutrophils # 10.4 H (1.3-6.0) K/mm3 Lymphocytes # 1.2 L (1.5-3.5) k/mm3 Chloride 108 H (97-106) mmol/L Carbon Dioxide 21.0 L (24-32.6) mmol/L Anion Gap 15.4 H (6.8-13.8) mmol/L Est GFR (Non-Af Amer) 58 L (60-130) mL/min Random Glucose 147 H (70-110) mg/dL AST 83 H (0-48) U/L ALT 97 H (19-67) U/L Albumin 2.2 L (3.4-5.0) gm/dl - Exam Constitutional: Present: Well developed, Well nourished, Somnolent ENT Exam: Present: normal ENT inspection, hearing grossly normal Neck: Present: normal inspection Respiratory: Present: decreased breath sounds, rhonchi Cardiovascular/Chest: Present: no murmur, irregularly irregular Abdomen: Present: Normal bowel sounds, soft, nontender, nondistended, no rebound tenderness, no hepatospenomegaly, no masses Extremity: Present: normal inspection, no pedal edema Skin Exam: Present: normal color, warm/dry, no cyanosis Neurologic: Absent: oriented x 3 Appearance: Present: appropriate appearance, neat, impaired insight, impaired recent memory, impaired remote memory. Absent: appropriate insight Cauti Physician Documentation - Urinary Catheter Management Urethral (Moralez) Date of Insertion: 07/22/16 Time of Insertion: 21:20 Assessment/Plan Plan Narrative: IV antibiotics. Follow labs. Continue Geodon. - Problems/Diagnosis (1) Antipsychotic-induced akathisia Problem: Resolved (2) Acute kidney injury Problem: Resolved (3) Altered mental status Problem: Acute Qualifiers: Altered mental status type: disorientation Qualified Code(s): R41.0 - Disorientation, unspecified (4) Atrial fibrillation with RVR Problem: Resolved (5) Sepsis Problem: Acute Qualifiers: Sepsis type: sepsis due to unspecified organism Qualified Code(s): A41.9 - Sepsis, unspecified organism Narrative: Sepsis due to acute bacterial bronchitis. (6) Dementia Problem: Chronic Qualifiers: Dementia type: Alzheimer's disease Alzheimer's disease onset: late-onset Dementia behavioral disturbance: with behavioral disturbance Qualified Code(s) : G30.1 - Alzheimer's disease with late onset; F02.81 - Dementia in other diseases classified elsewhere with behavioral disturbance (7) HTN (hypertension) Problem: Chronic Qualifiers: Hypertension type: essential hypertension Qualified Code(s): I10 - Essential (primary) hypertension (8) Macular degeneration Problem: Chronic (9) Acute bronchitis Problem: Acute Qualifiers: Bronchitis organism: unspecified organism Qualified Code(s): J20.9 - Acute bronchitis, unspecified (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 (13) Acute worsening of stage 3 chronic kidney disease Problem: Acute
[2016-07-28] MEDS: ENOXAPARIN SODIUM 30 MG/0.3 ML SYRG SC SCH (20:16)
[2016-07-29 06:38] LABS: Hematocrit 39.7 % (42.0-52.0); Hemoglobin 13.3 gm/dL (13.5-18.0); Mean Cell Volume 88.8 fl (78-100); Mean Corpuscular Hemoglobin 29.8 pg (27-31); Mean Corpuscular Hgb Conc 33.5 g/dl (32-36); Mean Platelet Volume 11.6 fl (6.0-9.5); Neutrophil % 75.6 % (42-75.0); Platelet Count 333 K/mm3 (150-450); Red Blood Count 4.47 M/mm3 (4.7-6.0); Red Cell Distribution Width 13.2 % (11.5-14.0); White Blood Count 13.3 K/mm3 (4.0-10.5)
[2016-07-29] MEDS: POTASSIUM CHLORIDE 20 MEQ in DEXTROSE 5 % IN WATER 1,000 ML IV SCH ×6 (06:43→17:03)
[2016-07-29 07:00] LABS: Albumin * 2.2 gm/dl (3.4-5.0); Anion Gap 14.5 mmol/L (6.8-13.8); BUN/Creatinine Ratio 12.2 (9.0-21.6); Bilirubin Direct 0.2 mg/dL (0.0-0.3); Bilirubin, Total 0.8 mg/dL (0.0-1.1); Bilirubin,Indirect 0.6 mg/dL (0.1-0.7); Calcium * 8.2 mg/dL (7.9-10.9); Estimated Creat Clear 47.8; Potassium 4.5 mmol/L (3.4-4.6); Total Protein 6.3 gm/dL (6.2-8.2)
[2016-07-29] MEDS: DONEPEZIL HCL 10 MG TABLET PO SCH (09:55)
[2016-07-29] MEDS: MULTIVIT WITH IRON-MINERALS 1 TAB TABLET PO SCH (09:56)
[2016-07-29] MEDS: METOPROLOL TARTRATE 25 MG TABLET PO SCH ×2 (09:56→21:32)
[2016-07-29] MEDS: AMIODARONE HCL 200 MG TABLET PO SCH ×2 (09:56→21:32)
[2016-07-29] MEDS: MEMANTINE HCL 10 MG TABLET PO SCH (09:57)
[2016-07-29] MEDS: DOXYCYCLINE HYCLATE 100 MG TABLET PO SCH ×2 (09:57→21:33)
[2016-07-29] MEDS: CYANOCOBALAMIN 1,000 MCG TABLET PO SCH (09:57)
[2016-07-29] MEDS: ZIPRASIDONE HCL 40 MG CAPSULE PO SCH (09:57)
--- NOTE | 2016-07-29 17:01 | PN ---
Subjective - Date and Time Seen Date: 07/29/16 Time: 06:30 Subjective Narrative: Did not require prn IM haldol last night. Cultures negative. Infection is bronchitis. Sepsis is due to bronchits. On antibiotics. Still in chronic a fib. Rate controlled. 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 We have increased his geodon dose and OVERALL behaviors seem modestly improved. We will continue IV antibiotics. Family stated to me 4 days ago he is legally blind. He is improving, very slowly, on IV antibiotics, but I have no cultures to guide a reasonable switch to oral medications. I am treating this as a bacterial bronchitis. His situation is complicated by his advanced Alzheimers, with dangerous associated behaviors, and we are now getting a handle on this part of his care. Not too long ago, he was hospitalized acutely solely for this problem. [place] [address], but I remain concerned by his slow improvement, the lack of guiding cultures, and the fact that his wbc count is still [phone]. I think his life and health risk would be most safely handled by continuing IV antibiotics till Wednesday, maximizing benefit from treatment for his behavioral issues, and watching his wbc count daily. We also need to carefully watch his liver function for trends while he is here. Laboratory Tests Objective - Review of Systems Generalized/Overall Review: Reports: No Symptoms Reported - more quietly conversant this morning. - Vitals Vitals: Last Vital Signs Selected Entries 07/29/16 04:00 Temperature 37.1 C Temperature Oral Source Pulse Rate 76 Respiratory 18 Rate Blood Pressure 132/81 Blood Pressure Supine Position O2 Sat by Pulse 92 Oximetry Oxygen Delivery Room Air Method - Abnormal Lab Findings Abnormal Lab Findings: Abnormal Lab Results 07/29/16 07/29/16 Range/Units 06:29 06:29 WBC 13.3 H (4.0-10.5) K/mm3 RBC 4.47 L (4.7-6.0) M/mm3 Hgb 13.3 L (13.5-18.0) gm/dL Hct 39.7 L (42.0-52.0) % MPV 11.6 H (6.0-9.5) fl Immature Gran % (Auto) 2.60 H (0.001-0.429) % Immature Gran # (Auto) 0.35 H (0.000-0.0310) K/mm3 Neutrophils % 75.6 H (42-75.0) % Lymphocytes % 10.3 L (20-51) % Eosinophils % 5.0 H (0.0-3.0) % Neutrophils # 10.0 H (1.3-6.0) K/mm3 Lymphocytes # 1.4 L (1.5-3.5) k/mm3 Chloride 108 H (97-106) mmol/L Carbon Dioxide 22.0 L (24-32.6) mmol/L Anion Gap 14.5 H (6.8-13.8) mmol/L Random Glucose 121 H (70-110) mg/dL AST 66 H (0-48) U/L ALT 90 H (19-67) U/L Albumin 2.2 L (3.4-5.0) gm/dl - Exam Constitutional: Present: Cooperative, Well developed, No distress, Somnolent ENT Exam: Present: normal ENT inspection, hearing grossly normal Neck: Present: normal inspection Respiratory: Present: normal breath sounds, no respiratory distress Cardiovascular/Chest: Present: no murmur, irregularly irregular Abdomen: Present: Normal bowel sounds, soft, nontender, nondistended, no rebound tenderness, no hepatospenomegaly, no masses Extremity: Present: normal range of motion, non-tender, normal inspection Skin Exam: Present: normal color, warm/dry, no cyanosis Neurologic: Present: disoriented x 3 Appearance: Present: appropriate appearance, neat Eye contact: Present: cooperative Thoughts: Absent: normal thought pattern Cauti Physician Documentation - Urinary Catheter Management Urethral (Moralez) Date of Insertion: 07/22/16 Time of Insertion: 21:20 Assessment/Plan Plan Narrative: Follow labs. continue IV antibiotics. up with help. Continue oral geodon. - Problems/Diagnosis (1) Antipsychotic-induced akathisia Problem: Resolved (2) Acute kidney injury Problem: Resolved (3) Altered mental status Problem: Acute Qualifiers: Altered mental status type: disorientation Qualified Code(s): R41.0 - Disorientation, unspecified (4) Atrial fibrillation with RVR Problem: Resolved (5) Sepsis Problem: Acute Qualifiers: Sepsis type: sepsis due to unspecified organism Qualified Code(s): A41.9 - Sepsis, unspecified organism (6) Dementia Problem: Chronic Qualifiers: Dementia type: Alzheimer's disease Alzheimer's disease onset: late-onset Dementia behavioral disturbance: with behavioral disturbance Qualified Code(s) : G30.1 - Alzheimer's disease with late onset; F02.81 - Dementia in other diseases classified elsewhere with behavioral disturbance (7) HTN (hypertension) Problem: Chronic Qualifiers: Hypertension type: essential hypertension Qualified Code(s): I10 - Essential (primary) hypertension (8) Macular degeneration Problem: Chronic (9) Acute bronchitis Problem: Acute Qualifiers: Bronchitis organism: unspecified organism Qualified Code(s): J20.9 - Acute bronchitis, unspecified (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 (13) Acute worsening of stage 3 chronic kidney disease Problem: Acute
[2016-07-29] MEDS: ENOXAPARIN SODIUM 30 MG/0.3 ML SYRG SC SCH (21:31)
[2016-07-29] MEDS: ZIPRASIDONE HCL 20 MG CAPSULE PO SCH (21:33)
[2016-07-30] MEDS: POTASSIUM CHLORIDE 20 MEQ in DEXTROSE 5 % IN WATER 1,000 ML IV SCH ×6 (01:52→20:35)
[2016-07-30 05:50] LABS: Hematocrit 40.5 % (42.0-52.0); Hemoglobin 13.7 gm/dL (13.5-18.0); Mean Cell Volume 88.8 fl (78-100); Mean Corpuscular Hgb Conc 33.8 g/dl (32-36); Mean Platelet Volume 11.2 fl (6.0-9.5); Platelet Count 361 K/mm3 (150-450); Red Blood Count 4.56 M/mm3 (4.7-6.0); Red Cell Distribution Width 13.1 % (11.5-14.0); White Blood Count 12.7 K/mm3 (4.0-10.5)
[2016-07-30 06:01] LABS: Total Cells Counted 100
[2016-07-30 06:04] LABS: Albumin * 2.2 gm/dl (3.4-5.0); Anion Gap 12.4 mmol/L (6.8-13.8); BUN/Creatinine Ratio 10.9 (9.0-21.6); Bilirubin Direct 0.2 mg/dL (0.0-0.3); Bilirubin, Total 0.8 mg/dL (0.0-1.1); Bilirubin,Indirect 0.6 mg/dL (0.1-0.7); Calcium * 8.3 mg/dL (7.9-10.9); Estimated Creat Clear 42.9; Potassium 4.4 mmol/L (3.4-4.6); Total Protein 6.6 gm/dL (6.2-8.2)
[2016-07-30 06:21] LABS: Atypical (Reactive) Lymph 1 % (0-2); Band 4 % (0-2.0); Eosinophil 2 % (0-3); Lymphocyte 6 % (20-51); Monocyte 2 % (0-9); Neutrophil 85 % (42-75); Neutrophil # 10.8 K/mm3 (1.3-6.0); Platelet Estimate Normal (NORMAL); RBC Morphology Normal (NORMAL)
--- NOTE | 2016-07-30 06:47 | PN ---
Subjective - Date and Time Seen Date: 07/30/16 Time: 06:43 Subjective Narrative: Did not require prn IM haldol last night. Cultures negative. Infection is bronchitis. Sepsis is due to bronchits. On antibiotics. Still in chronic a fib. Rate controlled. 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 We have decreased his geodon dose due to sedation and OVERALL behaviors seem still modestly improved. We will continue IV antibiotics. Family stated to me 5 days ago he is legally blind. He is improving, very slowly, on IV antibiotics, but I have no cultures to guide a reasonable switch to oral medications. I am treating this as a bacterial bronchitis. His situation is complicated by his advanced Alzheimers, with dangerous associated behaviors, and we are now getting a handle on this part of his care. Not too long ago, he was hospitalized acutely solely for this problem. His wbc count is now 12,700 with 4% bands, but I remain concerned by his slow improvement, the lack of guiding cultures, and the fact that his wbc count is still up slightly. I think his life and health risk would be most safely handled by continuing IV antibiotics till Wednesday, maximizing benefit from treatment for his behavioral issues, and watching his wbc count daily. We also need to carefully watch his liver function for trends while he is here. Laboratory Tests Objective - Review of Systems Generalized/Overall Review: Reports: No Symptoms Reported - poor historian - Vitals Vitals: Last Vital Signs Temp 37.5 C 07/30/16 03:00 Pulse 81 07/30/16 03:00 Resp 20 07/30/16 03:00 BP 144/74 07/30/16 03:00 Pulse Ox 98 07/30/16 03:00 - Abnormal Lab Findings Abnormal Lab Findings: Abnormal Lab Results 07/29/16 07/30/16 07/30/16 Range/Units 06:29 05:44 05:44 WBC 12.7 H (4.0-10.5) K/mm3 RBC 4.56 L (4.7-6.0) M/mm3 Hct 40.5 L (42.0-52.0) % MPV 11.2 H (6.0-9.5) fl Neutrophils % (Manual) 85 H (42-75) % Band Neuts % (Manual) 4 H (0-2.0) % Lymphocytes % (Manual) 6 L (20-51) % Neutrophils # (Manual) 10.8 H (1.3-6.0) K/mm3 Lymphocytes # (Manual) 0.8 L (1.5-3.5) k/mm3 Chloride 108 H 107 H (97-106) mmol/L Carbon Dioxide 22.0 L 22.0 L (24-32.6) mmol/L Anion Gap 14.5 H (6.8-13.8) mmol/L Est GFR (Non-Af Amer) 53 L (60-130) mL/min Random Glucose 121 H 145 H (70-110) mg/dL AST 66 H 57 H (0-48) U/L ALT 90 H 84 H (19-67) U/L Albumin 2.2 L 2.2 L (3.4-5.0) gm/dl - Exam Constitutional: Present: Cooperative, Well developed, Well nourished, No distress, Somnolent ENT Exam: Present: normal ENT inspection Neck: Present: normal inspection Respiratory: Present: lungs clear, no respiratory distress Cardiovascular/Chest: Present: regular rate, rhythm, no murmur Abdomen: Present: Normal bowel sounds, soft, nontender, nondistended, no rebound tenderness, no hepatospenomegaly, no masses Extremity: Present: non-tender, no pedal edema Skin Exam: Present: normal color, warm/dry, no cyanosis Neurologic: Present: disoriented x 3 Appearance: Present: appropriate appearance Eye contact: Present: cooperative Thoughts: Present: normal thought pattern Cauti Physician Documentation - Urinary Catheter Management Urethral (Moralez) Date of Insertion: 07/22/16 Time of Insertion: 21:20 Assessment/Plan Plan Narrative: Decrease amiodarone. Continue IV antibiotics. Follow labs. Possibly shelter tomorrow. - Problems/Diagnosis (1) Antipsychotic-induced akathisia Problem: Resolved (2) Acute kidney injury Problem: Resolved (3) Altered mental status Problem: Acute Qualifiers: Altered mental status type: disorientation Qualified Code(s): R41.0 - Disorientation, unspecified (4) Atrial fibrillation with RVR Problem: Resolved (5) Sepsis Problem: Acute Qualifiers: Sepsis type: sepsis due to unspecified organism Qualified Code(s): A41.9 - Sepsis, unspecified organism (6) Dementia Problem: Chronic Qualifiers: Dementia type: Alzheimer's disease Alzheimer's disease onset: late-onset Dementia behavioral disturbance: with behavioral disturbance Qualified Code(s) : G30.1 - Alzheimer's disease with late onset; F02.81 - Dementia in other diseases classified elsewhere with behavioral disturbance (7) HTN (hypertension) Problem: Chronic Qualifiers: Hypertension type: essential hypertension Qualified Code(s): I10 - Essential (primary) hypertension (8) Macular degeneration Problem: Chronic (9) Acute bronchitis Problem: Acute Qualifiers: Bronchitis organism: unspecified organism Qualified Code(s): J20.9 - Acute bronchitis, unspecified (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 (13) Acute worsening of stage 3 chronic kidney disease Problem: Acute
[2016-07-30] MEDS: AMIODARONE HCL 200 MG TABLET PO SCH (08:48)
[2016-07-30] MEDS: CYANOCOBALAMIN 1,000 MCG TABLET PO SCH (08:50)
[2016-07-30] MEDS: DONEPEZIL HCL 10 MG TABLET PO SCH (08:50)
[2016-07-30] MEDS: MEMANTINE HCL 10 MG TABLET PO SCH (08:50)
[2016-07-30] MEDS: METOPROLOL TARTRATE 25 MG TABLET PO SCH ×2 (08:50→21:09)
[2016-07-30] MEDS: MULTIVIT WITH IRON-MINERALS 1 TAB TABLET PO SCH (08:51)
[2016-07-30] MEDS: DOXYCYCLINE HYCLATE 100 MG TABLET PO SCH ×2 (09:01→21:08)
[2016-07-30] MEDS: ZIPRASIDONE HCL 20 MG CAPSULE PO SCH (21:05)
[2016-07-30] MEDS: ENOXAPARIN SODIUM 30 MG/0.3 ML SYRG SC SCH (21:06)
[2016-07-31] MEDS: POTASSIUM CHLORIDE 20 MEQ in DEXTROSE 5 % IN WATER 1,000 ML IV SCH ×4 (04:46→09:39)
[2016-07-31 06:04] LABS: Hematocrit 45.7 % (42.0-52.0); Hemoglobin 15.2 gm/dL (13.5-18.0); Mean Cell Volume 90.1 fl (78-100); Mean Corpuscular Hgb Conc 33.3 g/dl (32-36); Mean Platelet Volume 11.2 fl (6.0-9.5); Neutrophil # 9.7 K/mm3 (1.3-6.0); Neutrophil % 73.6 % (42-75.0); Platelet Count 343 K/mm3 (150-450); Red Blood Count 5.07 M/mm3 (4.7-6.0); Red Cell Distribution Width 13.3 % (11.5-14.0); White Blood Count 13.2 K/mm3 (4.0-10.5)
[2016-07-31 06:18] LABS: Albumin * 2.5 gm/dl (3.4-5.0); Bilirubin Direct 0.2 mg/dL (0.0-0.3); Bilirubin, Total 0.9 mg/dL (0.0-1.1); Bilirubin,Indirect 0.7 mg/dL (0.1-0.7); Total Protein 7.1 gm/dL (6.2-8.2)
[2016-07-31 07:01] VITALS: BP 107/78
--- NOTE | 2016-07-31 08:19 | DS ---
(1) Antipsychotic-induced akathisia Problem: Resolved (2) Acute kidney injury Problem: Resolved (3) Altered mental status Problem: Resolved Qualifiers: Altered mental status type: disorientation Qualified Code(s): R41.0 - Disorientation, unspecified (4) Atrial fibrillation with RVR Problem: Resolved (5) Sepsis Problem: Resolved Qualifiers: Sepsis type: sepsis due to unspecified organism Qualified Code(s): A41.9 - Sepsis, unspecified organism (6) Dementia Problem: Chronic Qualifiers: Dementia type: Alzheimer's disease Alzheimer's disease onset: late-onset Dementia behavioral disturbance: with behavioral disturbance Qualified Code(s) : G30.1 - Alzheimer's disease with late onset; F02.81 - Dementia in other diseases classified elsewhere with behavioral disturbance (7) HTN (hypertension) Problem: Chronic Qualifiers: Hypertension type: essential hypertension Qualified Code(s): I10 - Essential (primary) hypertension (8) Macular degeneration Problem: Chronic (9) Acute bronchitis Problem: Acute Qualifiers: Bronchitis organism: unspecified organism Qualified Code(s): J20.9 - Acute bronchitis, unspecified (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 (13) Acute worsening of stage 3 chronic kidney disease Problem: Acute (14) Leukocytosis Problem: Acute Qualifiers: Leukocytosis type: unspecified Qualified Code(s): D72.829 - Elevated white blood cell count, unspecified Description of Stay: Infection slowly improved. A fib with RVR improved. Behaviors improved very slowly, but he still has moderate to severe alzheimers. We will follow elevated liver enzymes and wbc count. Cause unknown at present. Procedures Performed: none Discharge Disposition: [facility] Disposition: [facility] Condition: Fair Discharge Activity: Activity as tolerated Discharge Diet: Mech soft Discharge Level of Care:: SNF - Snf Snf Therapy: Physicial Therapy, Occupation Therapy Problem Oriented Discharge Instructions to Patient/Family: Acute Bronchitis, Sepsis, Adult, Atrial Fibrillation, [id number], Alzheimer Disease, Psychosis Additional Patient Instructions (free text): CBC BMP Liver panel TSH free T4 in 1 week. Prescriptions (Any new or edited meds): Acetaminophen [Tylenol] 650 mg PO Q6H PRN #1 tablet PRN Reason: Pain Amiodarone HCl [Cordarone] 100 mg PO DAILY #1 tablet Cefuroxime Axetil [Ceftin] 500 mg PO BID #20 tab Memantine HCl [Namenda] 10 mg PO DAILY #1 tablet Ziprasidone HCl [Geodon] 20 mg PO HS #1 capsule Complete Home Medications List: Complete Home Medication List: Aspirin [Aspirin EC] 81 mg PO DAILY 07/22/16 Cyanocobalamin [Vitamin B-12] 1,000 mcg PO DAILY 07/22/16 Magnesium Hydroxide [Milk Of Magnesia] 30 ml PO DAILY PRN 07/22/16 Multivit-Min/FA/Lycopene/Lut [S[employer] Senior Multivitamin Tab] 1 each PO DAILY Pravastatin Sodium [Pravachol] 80 mg PO HS 07/22/16 Acetaminophen [Tylenol] 650 mg PO Q6H PRN #1 tablet 07/31/16 Amiodarone HCl [Cordarone] 100 mg PO DAILY #1 tablet 07/31/16 Cefuroxime Axetil [Ceftin] 500 mg PO BID #20 tab 07/31/16 Donepezil HCl [Aricept] 10 mg PO DAILY tablet 07/31/16 Memantine HCl [Namenda] 10 mg PO DAILY #1 tablet 07/31/16 Metoprolol Tartrate [Lopressor] 25 mg PO BID tablet 07/31/16 Ziprasidone HCl [Geodon] 20 mg PO HS #1 capsule 07/31/16
[2016-07-31] MEDS: MULTIVIT WITH IRON-MINERALS 1 TAB TABLET PO SCH (09:39)
[2016-07-31] MEDS: DONEPEZIL HCL 10 MG TABLET PO SCH (09:39)
[2016-07-31] MEDS: AMIODARONE HCL 200 MG TABLET PO SCH (09:40)
[2016-07-31] MEDS: METOPROLOL TARTRATE 25 MG TABLET PO SCH (09:40)
[2016-07-31] MEDS: MEMANTINE HCL 10 MG TABLET PO SCH (09:40)
[2016-07-31] MEDS: CYANOCOBALAMIN 1,000 MCG TABLET PO SCH (09:40)
[2016-07-31] MEDS: DOXYCYCLINE HYCLATE 100 MG TABLET PO SCH (09:40)
== END 2016-07-31 13:30 | DRG 872 ==
LOC: ER 16:25 → SCU 18:21 → OBSVTOIN 18:21 → UNDOADMOB 18:21 → INTOOBSV 18:24 → UNDOADMOB 18:24 → SCU 18:24 → OBSVTOIN 18:24 → SCU 07-24 12:32 → UNDOADMOB 07-24 12:32 → INTOOBSV 07-24 12:32 → MS 07-24 19:12
PROVIDERS: ADMIT Allergy & Immunology; ATTEND Allergy & Immunology
PROC: 4A033R1 Measurement of Arterial Saturation, Peripheral, Percutaneous Approach (ICD-10-PCS; principal; 2016-07-22)
DX: A41.9 Sepsis, unspecified organism (principal); N17.9 Acute kidney failure, unspecified; F02.81 Dementia in other diseases classified elsewhere, unspecified severity, with behavioral disturbance; J20.9 Acute bronchitis, unspecified; G25.71 Drug induced akathisia; T43.505A Adverse effect of unspecified antipsychotics and neuroleptics, initial encounter; I12.9 Hypertensive chronic kidney disease with stage 1 through stage 4 chronic kidney disease, or unspecified chronic kidney disease; N18.3 Chronic kidney disease, stage 3 (moderate); I48.91 Unspecified atrial fibrillation; G30.1 Alzheimer's disease with late onset; H54.8 Legal blindness, as defined in USA; D72.829 Elevated white blood cell count, unspecified; Z79.82 Long term (current) use of aspirin

== ENCOUNTER 2016-09-11 09:26 | Emergency (ER) | payer MEDICARE ==
--- OUTSIDE RECORDS SUMMARY | 2016-09-11 10:25 | XMS REPORT | Continuity of Care Document ---
:1935 Author Organization [facility] ([facility]) Address [address] [place] [address] Phone [phone] Care Team Providers Name Role Phone HarijnaiceDale melara Primary Care Provider [phone] Source Comments This disclosure is being made pursuant to the Care Everywhere program, applicable federal and state laws, and may not contain all informaitonavailable regarding this patient.[facility] ([facility]) Active Allergies and Adverse Reactions Allergen Noted Date Severity Reactions Comments No Known Drug Allergies 10/23/2008 NO REACTION Current Medications Prescription Sig. Disp. Refills Start Date End Date Status MULTIVITAMIN Take 1 tablet by Active W-MINERALS/LUTEIN mouth daily. (CENTRUM SILVER PO) pravastatin 80 mg tablet Take 1 tablet 90 tablet 3 02/26/2015 Active (80 mg total) by mouth every evening omega-3 fatty acids 1 Take 1 g by Active gram capsule mouth daily. cyanocobalamin (VITAMIN Take 1,000 mcg Active B-12) 1,000 mcg tablet by mouth daily. benazepril 20 mg tablet Take 1.5 tablets 45 tablet 3 07/09/2016 Active (30 mg total) by mouth daily. LORazepam 1 mg tablet Take 1 tablet (1 90 tablet 0 07/09/2016 Active mg total) by mouth every 6 hours as needed. metoPROLol tartrate 25 Take 1.5 tablets 90 tablet 2 07/09/2016 Active mg tablet (37.5 mg total) by mouth 2 times daily. OLANZapine (ZYPREXA) 5 Take 1 tablet (5 60 tablet 3 07/09/2016 Active mg tablet mg total) by mouth 2 times daily. aspirin 81 mg chewable Take 1 tablet 30 tablet 11 07/14/2016 Active tablet (81 mg total) by mouth daily. Active Problems Problem Noted Date Confusion 07/09/2016 Agitation 07/09/2016 Late onset Alzheimer's disease with behavioral disturbance 07/07/2016 HTN (hypertension) 03/30/2012 Dyslipidemia 03/30/2012 Macular degeneration, age related, exudative 10/15/2011 Overview: Formatting of this note may be different from the original. Right Eye Left Eye Time To Recurrence: Time To Recurrence: Date VA (D cc) CMT Status Procedure VA (D cc) CMT Status Procedure Cmts 10/15/2011 20/40-2 20/125 ecc Luc[facility]is [id number] 11/12/2011 20/250 [facility] #[id number] 12/10/2011 20/250 Luc[facility]is #[id number] 01/14/2012 20/40 -1+1 20/150 Eylea 02/11/2012 2030 20/125 Eylea [id number] 03/10/2012 2040 20/125-1 Eylea [id number] 05/05/2012 20/40+2 20/125+1 Lucentis [id number] 06/15/12 20/25-3 20/100-1 [id number] Atrial fibrillation 06/03/2007 Resolved Problems Problem Noted Date Resolved Date Thrush, oral 08/11/2012 07/09/2016 Pneumonia, organism unspecified 03/30/2012 07/09/2016 Overview: RLL pneumonia Most Recent Encounters Date Type Specialty Providers Description 07/10/2016 Office Visit [facility] Eddie Oleary, Dx: Agitation Internal Medicine (Primary Dx) 07/10/2016 Telephone [facility] Primary Care Eddie Oleary, Chief Comp: Need MD Prior Authorization 07/09/2016 - [facility] Eddie Oleary, Dx: Late onset 07/14/2016 Encounter Internal Medicine Alzheimer's disease with behavioral disturbance (Primary Dx) 07/09/2016 Telephone [facility] Primary Care Eddie Oleary, Chief Comp: Clarify Medications/orders 07/09/2016 Orders/Notes [facility] Eddie Oleary, Dx: Essential Internal Medicine hypertension (Primary Dx) 07/07/2016 - [facility] See [place] Dx: Late onset 07/09/2016 Encounter Internal Medicine MD Mickey Alzheimer's disease Eddie Oleary, with behavioral MD disturbance (Primary Dx) 07/03/2016 Office Visit Harry Sewell Dx: Atrial Specialty A, DO fibrillation, unspecified type 06/16/2016 Office Visit Herb Gomez - Default, Other Dx: Atrial Specialty Billg - Defo fibrillation, unspecified type Immunizations Name Dates Previously Given Next Due Influenza 03/16/2012 Influenza, PF 04/03/2013,03/23/2011 Influenza, quadrivalent 04/08/2015,04/25/2014 Influenza, unspecified 04/28/2016 Pneumococcal Conjugate, PCV13 (Prevnar 13) 07/09/2016 Social History Tobacco Use Types Packs/Day Years Used Date Former Smoker Smokeless Tobacco: Never Used Comments:quit 40 years ago Alcohol Use Drinks/Week oz/Week Comments No Last Filed Vital Signs Vital Sign Reading Time Taken Blood Pressure 130/83 07/13/2016 7:58 PM UX ENGINEER Pulse 78 07/13/2016 7:58 PM UX ENGINEER Temperature 36.2 C (97.2 F) 07/13/2016 7:58 PM UX ENGINEER Respiratory Rate 19 07/13/2016 7:58 PM UX ENGINEER Height 1.778 m (5' 10") 07/07/2016 3:48 PM UX ENGINEER Weight 93.441 kg (206 lb) 07/07/2016 6:20 PM UX ENGINEER Body Mass Index 29.56 07/07/2016 6:20 PM UX ENGINEER Oxygen Saturation 98% 07/13/2016 7:58 PM UX ENGINEER Plan of Care Health Maintenance Due Date Last Done Comments Hepatitis B Vaccine (1 of 3 1935 - Primary Series) Tdap Vaccine 1945 Td Vaccine 1952 Colonoscopy 03/13/1984 Zoster Vaccine 1994 Pneumococcal Vaccine (2 of 2 07/09/2017 07/09/2016 - PPSV23) Lipid Disorder Screening 04/15/2021 04/15/2016, Additional history exists 10/28/2015, 11/07/2014 Influenza Vaccine: Seasonal Completed 04/28/2016, Additional history exists 04/08/2015, 04/25/2014 Results from Last 3 Months [facility] CT HEAD WO CONTRAST ([id number]) (07/08/2016 8:34 AM) Impressions Impression: 1. Senescent changes. 2. No acute intracranial abnormalities identified. Electronically signed by: Haider Salinas MD - 07/08/2016 8:38 AM Narrative EXAM: CT HEAD W-O CONTRAST CLINICIAN'S HISTORY: new onset of confusion HISTORY REPORTED TO TECHNOLOGIST:NEW ONSET OF CONFUSION. NO INJURY. COMPARISON: None *Dose reduction techniques using the adjustment of the mA and/or kV according to patient size and/or use of AEC or iterative reconstruction were used in the acquisition of this exam.* TECHNIQUE: A non-infused CT of the head was performed. Findings: Moderate cerebral atrophy is present. Moderate white matter low densities are present suggesting chronic small vessel ischemic changes. No intracranial hemorrhage, mass lesion, mass effect or evidence of acute infarct is identified. There is mild prominence of the lateral and 3rd ventricles compatible with the degree of cerebral atrophy. There is a small bony protuberance from the inner table of the frontal bone on the right likely representing a chronic finding. No significant sinus or mastoid opacification is identified. Procedure Note Herber, Incoming Imaging Results - WedJul 08, 2016 8:40 AM UX ENGINEER EXAM: CT HEAD W-O CONTRAST CLINICIAN'S HISTORY: new onset of confusion HISTORY REPORTED TO TECHNOLOGIST: NEW ONSET OF CONFUSION. NO INJURY. COMPARISON: None *Dose reduction techniques using the adjustment of the mA and/or kV according to patient size and/or use of AEC or iterative reconstruction were used in the acquisition of this exam.* TECHNIQUE: A non-infused CT of the head was performed. Findings: Moderate cerebral atrophy is present. Moderate white matter low densities are present suggesting chronic small vessel ischemic changes. No intracranial hemorrhage, mass lesion, mass effect or evidence of acute infarct is identified. There is mild prominence of the lateral and 3rd ventricles compatible with the degree of cerebral atrophy. There is a small bony protuberance from the inner table of the frontal bone on the right likely representing a chronic finding. No significant sinus or mastoid opacification is identified. IMPRESSION Impression: 1. Senescent changes. 2. No acute intracranial abnormalities identified. Electronically signed by: Haider Salinas MD - 07/08/2016 8:38 AM [facility] VITAMIN B12 (07/08/2016 8:10 AM) Component Value Range [facility] Vitamin B12 606 200-900 pg/mL Specimen Blood [facility] RAPID PLASMIN REAGIN (RPR) (07/08/2016 8:10 AM) Component Value Range [facility] RPR (DX) NON-REACTIVEComment: NON-REACTIVE THIS TEST WAS PERFORMED AT: [facility] [address] [id number] DONNA RICARDO MD Specimen Blood [facility] THYROID-STIMULATING HORMONE (TSH) (07/08/2016 8:10 AM) Component Value Range [facility] TSH 2.86 0.27-4.20 uIU/mL Specimen Blood [facility] EPIPHANY EKG (07/08/2016 7:08 AM) Component Value Range REPORT [facility] Clinics Test Date:2016-07-08 Pat Name: RUBIN RICHARDSON Department: Room: 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: ROSIBEL :1935 Requested By: Order Number: [id number] MD: Sen Colindres Measurements IntervalsAxis Rate: 78 P: MD: 0QRS: 75 QRSD: 91 T: 47 QT: 411 QTc:470 Interpretive Statements ATRIAL FIBRILLATION MINIMAL ST DEPRESSION [0.025+ mV ST DEPRESSION] ABNORMAL RHYTHM ECG No previous ECG available for comparison Electronically Signed On 07-08-2016 7:13:21 UX ENGINEER by Sen Colindres [facility] URINALYSIS WITH MICROSCOPY AND REFLEX TO CULTURE (07/07/2016 4:39 PM) Component Value Range [facility] Color, urine Yellow Yellow [facility] Clarity, Urine Clear Clear [facility] Spec [place]ita, Urine 1.010(L) 1.015-1.025 [facility] pH, Urine 5.5 5-8 [facility] Glucose, Urine Negative Negative [facility] Ketones, Urine Trace(A) Negative [facility] Bilirubin, Urine Negative Negative [facility] Hemogloblin, Urine Negative Negative [facility] Protein, Urine Negative Negative [facility] Leukocyte Esterase, Urine Negative Negative [facility] Nitrite, Urine Negative Negative [facility] Culture Not Done [facility] RBC, urine None Seen None Seen /hpf [facility] WBC, urine None Seen None Seen, 0-2 [facility] Epithelial Cells None Seen 1-5, None Seen /lpf [facility] Bacteria None Seen None Seen [facility] Crystals None Seen None Seen [facility] Casts None Seen None Seen [facility] Mucus None Seen None Seen [facility] Collection Voided [facility] Microscopic See Below [facility] Amorphous Crystals None Seen None Seen [facility] Calcium Oxalate Crystals None Seen None Seen [facility] Hippuric Crystals None Seen None Seen [facility] Triple Phosphate Crystals None Seen None Seen [facility] Uric Acid Crystals None Seen None Seen [facility] Leucine None Seen None Seen [facility] Cystine Crystals None Seen None Seen [facility] WBC Casts None Seen None Seen [facility] RBC Casts None Seen None Seen [facility] Fine Granular Casts None Seen None Seen [facility] Course Granular Casts None Seen None Seen [facility] Hyaline Casts None Seen None Seen Specimen Urine [facility] PT/INR (PROTHROMBIN TIME/INR) VENOUS (07/07/2016 4:33 PM)Only the most recent of3 resultswithin the time period is included. Component Value Range [facility] Protime 20.5(H) 9.0-12.0 Secs [facility] INR 2.1(H) 0.1-1.1 Specimen Blood [facility] C-REACTIVE PROTEIN (07/07/2016 4:33 PM) Component Value Range [facility] CRP 0.32 0.00-1.00 mg/dL Specimen Blood [facility] COMPREHENSIVE METABOLIC PANEL (CMP) (07/07/2016 4:33 PM) Component Value Range [facility] AST 38(H) 0-37 IU/L [facility] ALT 28 0-40 IU/L [facility] Alkaline Phosphatase 85 39-117 IU/L [facility] Total Protein 7.1 5.9-8.4 g/dL [facility] Albumin 3.9 3.5-5.0 g/dL [facility] Globulin 3.2 2.0-3.6 g/dL [facility] A/G Ratio 1.2 1.0-2.5 [facility] Total Bilirubin 1.2(H) 0.0-1.0 mg/dL [facility] Creatinine 1.1 0.5-1.2 mg/dL [facility] BUN 20 7-22 mg/dL [facility] Sodium 140 133-145 mEq/L [facility] Potassium 4.0 3.3-5.1 mEq/L [facility] Chloride 100 96-108 mEq/L [facility] CO2 23 22-30 mEq/L [facility] Anion Gap 17(H) 8-16 mEq/L [facility] Calcium 8.9 8.4-10.2 mg/dL [facility] Glucose 108 60-125 mg/dL [facility] Calculated GFR 64 >60 mL/min/1.73 m2 Specimen Blood [facility] CBC WITH DIFFERENTIAL (07/07/2016 4:33 PM) Component Value Range [facility] WBC Count 8.5 3.7-9.3 Ths/uL [facility] RBC Count 4.87 4.20-5.70 mil/uL [facility] Hemoglobin 14.7 13.9-16.9 g/dL [facility] Hematocrit 44 42-51 % [facility] MCV (Mean Corpuscular Volume) 89 81-98 fL [facility] MCH (Mean Corpuscular Hemoglobin) 30.2 26.9-31.1 pg [facility] MCHC (Mean Corpuscular Hemoglobin Concentration) 33.8 31.9-36.1 g/dL [facility] Platelet Count 246 161-349 Ths/uL [facility] RDW-SD 44.5 35.0-54.0 fL [facility] RDW-CV 13.8 11.6-17.0 % [facility] MPV (Mean Platelet Volume) 10.4 9.0-13.0 fL [facility] Absolute Neutrophils 5.9 1.5-7.9 Ths/uL [facility] Absolute Lymphocytes 1.7 0.7-3.4 Ths/uL [facility] Absolute Monocytes 0.78 0.10-1.00 Ths/uL [facility] Absolute Eosiniphils 0.11 0.00-0.35 Ths/uL [facility] Absolute Basophils 0.04 0.00-0.10 Ths/uL [facility] Absolute Ig 0.01 0.00-0.10 Ths/uL [facility] Percent Neutrophils 69.0 40.0-70.0 % [facility] Percent Lymphocytes 19.9(L) 20.0-44.0 % [facility] Percent Monocytes 9.2 0.0-10.0 % [facility] Percent Eosinophils 1.3 0.0-6.0 % [facility] Percent Basophils 0.5 0.0-2.0 % [facility] Percent Ig 0.1 0.0-1.0 % [facility] Manual Differential Not Indicated Specimen Blood
[2016-09-11 10:38] LABS: Hematocrit 38.3 % (42.0-52.0); Hemoglobin 12.6 gm/dL (13.5-18.0); Mean Cell Volume 90.8 fl (78-100); Mean Corpuscular Hemoglobin 29.9 pg (27-31); Mean Corpuscular Hgb Conc 32.9 g/dl (32-36); Mean Platelet Volume 9.9 fl (6.0-9.5); Neutrophil # 7.9 K/mm3 (1.3-6.0); Neutrophil % 70.9 % (42-75.0); Platelet Count 371 K/mm3 (150-450); Red Blood Count 4.22 M/mm3 (4.7-6.0); Red Cell Distribution Width 14.3 % (11.5-14.0); White Blood Count 11.2 K/mm3 (4.0-10.5)
[2016-09-11 10:50] LABS: Albumin * 2.9 gm/dl (3.4-5.0); Anion Gap 17.1 mmol/L (6.8-13.8); BUN/Creatinine Ratio 10.4 (9.0-21.6); Bilirubin, Total 0.8 mg/dL (0.0-1.1); CRP 3.9 mg/dL (0.0-0.9); Ca. Corrected For Albumin 9.2 mg/dL (8.4-10.2); Calcium * 8.6 mg/dL (7.9-10.9); Carbon Dioxide 25.6 mmol/L (24-32.6); Potassium 3.7 mmol/L (3.4-4.6)
--- NOTE | 2016-09-11 11:15 | ERNOTE ---
Integumentary HPI - Narrative Date of Service: 09/11/16 - General Presenting Symptoms: rash Time Seen by Provider: 09/11/16 10:10 Source: patient, family, RN notes reviewed Exam Limitations: dementia - Immun/Allergies/Home Medications Immunizations: IMMUNIZATION HX Immunizations Up to Date Yes History of Influenza Vaccine Yes Hx Pneumococcal Vaccination Yes Allergies/Adverse Reactions: Allergies Allergy/AdvReac Type Severity Reaction Status Date / Time No Known Allergies Allergy Verified 09/11/16 09:41 Home Medications: HOME MEDICATIONS Aspirin [Aspirin EC] 81 mg PO DAILY 07/22/16 [Last Taken 07/21/16 08:00] Cyanocobalamin [Vitamin B-12] 1,000 mcg PO DAILY 07/22/16 [Last Taken 07/21/16 08:00] Magnesium Hydroxide [Milk Of Magnesia] 30 ml PO DAILY PRN 07/22/16 [Last Taken 07/21/16 09:15] Multivit-Min/FA/Lycopene/Lut [Sentry Senior Multivitamin Tab] 1 each PO DAILY [Last Taken 07/21/16 08:00] Pravastatin Sodium [Pravachol] 80 mg PO HS 07/22/16 [Last Taken 07/21/16 20:00] Acetaminophen [Tylenol] 650 mg PO Q6H PRN #1 tablet 07/31/16 [Last Taken Unknown ] Amiodarone HCl [Cordarone] 100 mg PO DAILY #1 tablet 07/31/16 [Last Taken Unknown] Donepezil HCl [Aricept] 10 mg PO DAILY tablet 07/31/16 [Last Taken Unknown] Memantine HCl [Namenda] 10 mg PO DAILY #1 tablet 07/31/16 [Last Taken Unknown] Metoprolol Tartrate [Lopressor] 25 mg PO BID tablet 07/31/16 [Last Taken Unknown] Ziprasidone HCl [Geodon] 20 mg PO HS #1 capsule 07/31/16 [Last Taken Unknown] - Pain Pain Score: 0 - History of Present Illness Narrative: 81 y/o male to ED by ambulance from [facility] for a rash that began yesterday and has been rapidly spreading. The patient denies any pain or itching. He has not had any recent medication changes. The care center denied any changes in detergents or hygiene products. Date (Duration): 09/10/16 Location: Reports: torso, upper extremity, lower extremity, feet Quality: Denies: itching, painful, burning Severity: severe Exposure: Reports: no cause identified Associated Symptoms: Reports: rash, change in skin texture. Denies: blisters, petechiae, swelling/mass/lumps, edema, fever, headache, nasal congestion, sore throat, malaise Prior Treatment: Reports: recently hospitalized. Denies: currently on antibiotics Review of Systems - Review of Systems Constitutional: Present: recent illness. Absent: fever, chills, malaise EYE: Present: no symptoms reported ENT: Present: See HPI Respiratory: Absent: shortness of breath, cough Cardiology: Absent: chest pain, edema Gastrointestinal/Abdominal: Absent: vomiting, diarrhea, abdominal pain Genitourinary: Present: no symptoms reported Musculoskeletal: Absent: back pain, muscle pain Skin: Present: change in color. Absent: dryness Neurological: Absent: headache, dizziness/light-headedness Endocrine: Absent: excessive sweating, flushing, intolerance to heat Hematologic/Lymphatic: Absent: easy bruising, easy bleeding Psych: Present: no symptoms reported - Patient's Past Medical History Patient History - Medical: Alzheimer's Disease, Dementia, Other Patient History - Cardiac/Respiratory: Atrial Fibrillation Patient History - Cancer: No Hx of Cancer Patient History - Surgical Procedures: Appendectomy, Cholecystectomy, Coronary Bypass Surgery, Other Patient History - Other: None - Family History Father Family History - Medical: Family History - Cardiac/Respiratory: Myocardial Infarction Mother Family History - Medical: Family History - Cardiac/Respiratory: Coronary Heart Disease - Social History Living Situations: senior living Abuse History: No History of abuse Psych History: No pertinent hx Smoking Status: Former smoker Alcohol Use: none Drug Use: none - Immunizations Immunizations Up to Date: Yes Hx Pneumococcal Vaccination: Yes History of Influenza Vaccine: Yes Physical Exam - Physical Exam General Appearance: Present: wd/wn, alert, no apparent distress Eye Exam: Normal inspection: bilateral Ears, Nose, Throat: Present: normal ENT inspection Neck: Present: normal inspection, nontender, supple Respiratory: Present: no respiratory distress, normal breath sounds, no accessory muscle use, lungs clear Cardiovascular/Chest: Present: regular rate, rhythm, no murmur, normal peripheral pulses Peripheral Pulses: N=norm/S=strong/W=weak/B=bound/A=absent: Dorsalis-pedis (R): Normal, Dorsalis-pedis (L): Normal Gastrointestinal/Abdominal: Present: nontender, nondistended, soft Back Exam: Present: normal inspection, no CVA tenderness, no vertebral tenderness Extremity Exam: Present: normal except - - rash, non-tender, normal range of motion, no edema Neurological Exam: Present: alert, normal mood/affect, no motor/sensory deficits , disoriented to time, disoriented to place, disoriented to situation. Absent: disoriented to person Skin Exam: Present: warm/dry, skin rash - erythematous maculopapular eruption - severe on lower anterior legs, mild to moderate on feet, abdomen, buttocks and volar forearms ED Progress - Results and Orders Patient's Lab Results:: I have reviewed the patient's lab results. - Vital Signs Patient's Vital Signs:: I have reviewed the patient's vital signs. Vital Signs: Vital Signs 09/11/16 09:28 Temperature 36.1 C L Pulse Rate 80 Respiratory 16 Rate Blood Pressure 133/86 O2 Sat by Pulse 94 Oximetry - Progress/Reassessment Chief Complaint: Rash Progress:: Unchanged Progress Note-Subjective: 09/11/16 13:[address] Clancy (PCP) regarding patient at 1155, recommended checking UA, still waiting on patient to void. He has been in the department for 4 hours and has not urinated. Plan - Plan Plan: Patient has been unable to void for urine sample. Bladder scan done, showed only 14 ml. Patient has no complaints. Eruption has not worsened. Rash is clearly vasculitis, but etiology is unclear with his lack of other symptoms. Lesions also examined by Dr. Chung who agrees with assessment. Patient will return to the care center. Dr. Clancy's office contacted to arrange follow up. Departure Clinical Impression: Vasculitis - Departure Disposition: Home Follow Up Needed Condition: Good Instructions: Vasculitis Additional Instructions: Return as needed for worsening symptoms - pain, fever, etc. Otherwise follow up as instructed by Dr. Clancy's office Referrals: Jose Dixon MD [Staff Physician] -
[2016-09-11 11:35] LABS: Prothrombin Time (Patient) 11.4 Seconds (9.4-11.4)
[2016-09-11 11:36] LABS: INR 1.1 INR (0.90-1.10)
[2016-09-11 15:08] VITALS: BP 157/92
== END 2016-09-11 15:29 | disposition home or self-care (01) ==
LOC: ER 09:26
DX: I77.6 Arteritis, unspecified (principal); G30.9 Alzheimer's disease, unspecified; F02.80 Dementia in other diseases classified elsewhere, unspecified severity, without behavioral disturbance, psychotic disturbance, mood disturbance, and anxiety; I48.91 Unspecified atrial fibrillation; Z79.01 Long term (current) use of anticoagulants